=== PATIENT | male | born 1980 | race Caucasian/White ===

== ENCOUNTER 2017-06-24 09:15 | Emergency (ER) | payer OTHER, SELFPAY ==
[2017-06-24 09:16] VITALS: BP 156/96; PULSE 103; RESP 17; TEMP 36.5; O2SAT 99
--- NOTE | 2017-06-24 09:37 | NURSING ---
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
--- NOTE | 2017-06-24 09:48 | ED.VISSUMM ---
- ER Visit Summary Date of Service: 06/24/17 Chief Complaint: Thumb infection History of Present Illness: The patient is a 37 M presents with a left thumb infection. Patient is a diabetic with history of hypertension who states that on Saturday he had a superficial abrasion to the medial aspect of the left thumb. He then said about moving/cleaning a saltwater tank in which his hand was in the water. He contacted the telephonic nurse and they do not believe that there is anything poisonous in the tank. There was choral but he does not believe he cut himself on the coral. Today he notes some swelling of the thumb to the point where he has limited motion at the interphalangeal joint as well as erythema. No fevers. No streaks up the arm. The patient states that he just started his second 7 day course of Levaquin for a respiratory infection. Physical Examination: Afebrile vital signs are stable Gen: Well-nourished well-developed Head: Normocephalic atraumatic Eyes: Perrl EOMI ENT: TMs clear no rhinorrhea moist mucous membranes Neck: Supple no lymphadenopathy no JVD nontender CVS: Regular rate rhythm no murmurs normal S1-S2 Respiratory: No distress clear to auscultation bilaterally chest nontender Abdomen: Soft nontender nondistended normal bowel sounds no masses Back: Nontender Extremity: Left thumb states a superficial abrasion in the medial aspect of the interphalangeal joint. There is some mild erythema surrounding this to the MCP joint. There is mild swelling. There is no lymphangitic streaking. There is no expression of fluid to culture. Skin: Normal color no rash Neuro: alert orientated ?3 CN II-XII intact normal strength sensation reflexes gait cerebellar Psych: Normal affect normal mood Emergency Department Course and Treatment: With infectious disease. They recommended adding and Bactrim. Should the patient have worsening symptoms he will need to return for IV antibiotics. Will need to be updated Impression: 1. Left thumb cellulitis. 2. Tetanus update This note was generated with [employer] dictation software. It may contain incorrect words, spelling, and punctuation that were not noted in review of the chart prior to signing ED Disposition - Plan for ED Patient: Disposition: Home or Assisted Living Chief Complaint: Wound Instructions: ED Infec Skin Cellulitis Prescriptions: Smz/Tmp Ds [Bactrim Ds] 1 tab PO BID #20 tab Referrals: Edgar Mckeon MD [Primary Care Provider] - 2 Days for wound check
[2017-06-24] MEDS: Diphth,Pertuss(Acell),Tet Vac 0.5 ML Vial IM (09:59)
== END 2017-06-24 10:30 | disposition home or self-care (01) ==
PROVIDERS: Emergency Provider Emergency Medicine; Family Provider Family Medicine; PCP Family Medicine
DX: S60.312A Abrasion of left thumb, initial encounter (principal); L03.012 Cellulitis of left finger; Z23 Encounter for immunization; J98.8 Other specified respiratory disorders; E11.9 Type 2 diabetes mellitus without complications; I10 Essential (primary) hypertension; X58.XXXA Exposure to other specified factors, initial encounter; Y93.9 Activity, unspecified; Y92.9 Unspecified place or not applicable; Z79.84 Long term (current) use of oral hypoglycemic drugs; Z79.899 Other long term (current) drug therapy
CPT/HCPCS: 90715; 99282

== ENCOUNTER → 2017-11-19 11:22 | Outpatient (CLI) | payer OTHER, SELFPAY ==
[2017-11-19 15:50] LABS: Absolute Lymphocyte Count 1.43 X10^3/ul (0.83-4.51); Absolute Neutrophil Count 4.9 X10^3/uL (2.0-7.7); Basophil# 0.02 X10^3/uL; Basophil% 0.3 % (0-1); Eosinophil# 0.06 X10^3/uL; Eosinophils% 0.9 % (0-5); Hematocrit 43.2 % (40-54); Hemoglobin 15.2 g/dl (13.0-16.5); Lymphocyte # 1.43 X10^3/ul (4.0); Lymphocyte % 21.1 % (19-41); Mean Corp Hgb Conc 35.2 g/gl (32-36); Mean Corpuscular Hgb 30.9 pg (27.0-32.0); Mean Corpuscular Volume 87.8 fL (80-94); Mean Platelet Vol. 9.7 fl (6.2-12.0); Monocyte# 0.37 X10^3/uL; Monocyte% 5.5 % (0-10); Neutrophil # 4.88 X10^3/uL (2.7-7.7); Neutrophil % 72.1 % (47-70); Platelet Count 209 K/mm3 (150-450); RBC Distribution Width CV 12.9 % (11.6-14.6); RBC Distribution Width SD 41.3 fl (35.1-43.9); Red Blood Count 4.92 M/mm3 (4.6-6.2); White Blood Count 6.8 K/mm3 (4.4-11.0)
[2017-11-19 15:52] LABS: POSITIVE COUNT NO; POSITIVE DIFFERENTIAL NO; POSITIVE MORPHOLOGY NO
[2017-11-19 16:03] LABS: ALB/GLOB Ratio 1.2 RATIO (0.9-2.4); AST(SGOT) 13 U/L (15-37); Alanine Aminotransfer ALT/SGPT 28 U/L (16-61); Albumin, Serum 4.1 g/dL (3.2-5.0); Alkaline Phosphatase 81 U/L (45-117); Anion Gap 13 (5-15); BUN 10 mg/dL (7-18); BUN/Creat Ratio 12.6 RATIO (10-20); Chloride 100 mmol/L (98-107); Creatinine, Serum 0.79 mg/dL (0.70-1.30); EST Glomerular Filtration Rate 116 mL/min (>60); Est Glom Filt Rate - Afr Amer 140 mL/min (>60); Globulin 3.4 g/dL (2.2-4.2); Glucose 110 mg/dL (74-106); Potassium 3.6 mmol/L (3.5-5.1); Protein, Total 7.5 g/dL (6.4-8.2); Sodium Level 138 mmol/L (136-145)
[2017-11-19 16:14] LABS: Phenytoin (Dilantin) Level 9.4 mL (10.0-20.0)
== END ==
PROVIDERS: Family Provider Family Medicine; PCP Family Medicine; Visit Provider Family Medicine
DX: E11.9 Type 2 diabetes mellitus without complications (principal); I10 Essential (primary) hypertension; F63.81 Intermittent explosive disorder
CPT/HCPCS: 36415; 80053; 80185; 85025

== ENCOUNTER → 2017-12-04 13:13 | Outpatient (CLI) | payer OTHER, SELFPAY ==
[2017-12-04 16:18] LABS: T4 Free Direct 0.89 ng/dL (0.76-1.46); Thyroid Stim Hormone (TSH) 2.39 uIU/mL (0.358-3.74)
== END ==
PROVIDERS: Family Provider Family Medicine; PCP Family Medicine; Visit Provider Family Medicine
DX: F41.9 Anxiety disorder, unspecified (principal)
CPT/HCPCS: 36415; 84439; 84443

== ENCOUNTER → 2020-02-17 10:18 | Outpatient (CLI) | payer OTHER, SELFPAY ==
[2020-02-17 12:26] LABS: Absolute Neutrophil Count 4.6 X10^3/uL (2.0-7.7); Basophil# 0.03 X10^3/uL; Basophil% 0.4 % (0-1); Eosinophil# 0.06 X10^3/uL; Eosinophils% 0.9 % (0-5); Hematocrit 45.8 % (40-54); Hemoglobin 15.3 g/dL (13.0-16.5); Lymphocyte % 25.9 % (19-41); Mean Corp Hgb Conc 33.4 g/dL (32-36); Mean Corpuscular Hgb 30.2 pg (27.0-32.0); Mean Corpuscular Volume 90.3 fL (80-94); Mean Platelet Vol. 9.6 fl (6.2-12.0); Monocyte# 0.39 X10^3/uL; Monocyte% 5.6 % (0-10); NRBC Flagged by Analyzer 0 % (0-5); Neutrophil # 4.64 X10^3/uL (2.7-7.7); Neutrophil % 66.9 % (47-70); Platelet Count 221 K/mm3 (150-450); RBC Distribution Width CV 12.1 % (11.6-14.6); RBC Distribution Width SD 39.9 fl (35.1-43.9); Red Blood Count 5.07 M/mm3 (4.6-6.2); White Blood Count 6.9 K/mm3 (4.4-11.0)
[2020-02-17 12:58] LABS: Phenytoin (Dilantin) Level 9.7 mL (10.0-20.0)
[2020-02-17 13:07] LABS: ALB/GLOB Ratio 1.4 RATIO (0.9-2.4); AST(SGOT) 13 U/L (15-37); Alanine Aminotransfer ALT/SGPT 32 U/L (16-61); Albumin, Serum 4.2 g/dL (3.2-5.0); Alkaline Phosphatase 81 U/L (45-117); Anion Gap 5 (5-15); BUN 12 mg/dL (7-18); BUN/Creat Ratio 15.8 RATIO (10-20); Chloride 102 mmol/L (98-107); Cholesterol 262 mg/dL (200); Creatinine, Serum 0.76 mg/dL (0.70-1.30); EST Glomerular Filtration Rate 120 mL/min (>60); Est Glom Filt Rate - Afr Amer 145 mL/min (>60); Globulin 3.1 g/dL (2.2-4.2); Glucose 102 mg/dL (74-106); High Density Lipoprotein 35 mg/dL; Potassium 3.8 mmol/L (3.5-5.1); Protein, Total 7.3 g/dL (6.4-8.2); Sodium Level 138 mmol/L (136-145); Triglycerides 639 mg/dL
== END ==
PROVIDERS: PCP Family Medicine; Visit Provider Family Medicine
DX: E11.9 Type 2 diabetes mellitus without complications (principal); E78.5 Hyperlipidemia, unspecified; I10 Essential (primary) hypertension; Z51.81 Encounter for therapeutic drug level monitoring
CPT/HCPCS: 36415; 80053; 80061; 80185; 85025

== ENCOUNTER → 2020-05-31 09:09 | Outpatient (CLI) | payer OTHER, SELFPAY ==
[2020-05-31 12:25] LABS: Cholesterol 305 mg/dL (200); High Density Lipoprotein 35 mg/dL; Triglycerides 759 mg/dL
== END ==
PROVIDERS: PCP Family Medicine; Visit Provider Family Medicine
DX: E78.2 Mixed hyperlipidemia (principal); E11.9 Type 2 diabetes mellitus without complications
CPT/HCPCS: 36415; 80061

== ENCOUNTER → 2022-02-08 | Outpatient (CLI) | payer OTHER, SELFPAY ==
[2022-02-08 10:41] LABS: Bacteria 0 SEEN /hpf (None Seen); Mucous, Urine 0 SEEN /hpf (<or=2+); Red Blood Cells-Urine 0 SEEN /hpf (0-5); Squamous Epithelial Cells - UA 0 SEEN /hpf (0-5); White Blood Cells 0 SEEN /hpf (0-5)
[2022-02-08 12:50] LABS: Color, Urine Yellow (Yellow); Glucose, Dipstick Normal (Normal); Ketone-Dipstick 5 mg/dl (Negative); Leukocyte Esterase-Dipstick 25 /ul (Negative); Nitrite-Dipstick Negative (Negative); Occult Blood-Urine Negative /ul (Negative); Protein-Dipstick Negative (Negative); Urine Bilirubin Dipstick Negative (Negative); Urine Clarity Clear (Clear); Urine Urobilinogen Normal (Normal); Urine pH 6.5 (5.0 - 8.0)
[2022-02-08 13:02] LABS: Calcium Oxalate Crystals Ur 1+ /hpf (<or=2+)
== END | disposition home or self-care (01) ==
LOC: LABSPEC 10:40
PROVIDERS: PCP Internal Medicine; Referring Provider Nurse Practitioner Family; Visit Provider Nurse Practitioner Family
DX: I10 Essential (primary) hypertension (principal); E11.9 Type 2 diabetes mellitus without complications; E78.1 Pure hyperglyceridemia; R35.0 Frequency of micturition
CPT/HCPCS: 81001; 87086

== ENCOUNTER → 2022-02-27 | Outpatient (CLI) | payer OTHER, SELFPAY ==
[2022-02-27 12:38] LABS: Absolute Lymphocyte Count 1.95 X10^3/uL (0.83-4.51); Basophil# 0.05 X10^3/uL; Basophil% 0.6 % (0-1); Eosinophil# 0.09 X10^3/uL; Hematocrit 47.1 % (40-54); Hemoglobin 16.4 g/dL (13.0-16.5); Lymphocyte # 1.95 X10^3/ul (0.83-4.51); Lymphocyte % 22.7 % (19-41); Mean Corp Hgb Conc 34.8 g/dL (32-36); Mean Platelet Vol. 10.5 fl (6.2-12.0); Monocyte# 0.48 X10^3/uL; Monocyte% 5.6 % (0-10); NRBC Flagged by Analyzer 0 % (0-5); Neutrophil # 6.01 X10^3/uL (2.7-7.7); Platelet Count 235 K/mm3 (150-450); RBC Distribution Width CV 11.9 % (11.6-14.6); RBC Distribution Width SD 38.8 fl (35.1-43.9); Red Blood Count 5.29 M/mm3 (4.6-6.2); White Blood Count 8.6 K/mm3 (4.4-11.0)
[2022-02-27 13:21] LABS: ALB/GLOB Ratio 1.2 RATIO (0.9-2.4); AST(SGOT) 8 U/L (15-37); Alanine Aminotransfer ALT/SGPT 24 U/L (16-61); Albumin, Serum 4.1 g/dL (3.2-5.0); Alkaline Phosphatase 69 U/L (45-117); Anion Gap 9 (5-15); BUN 15 mg/dL (7-18); Chloride 102 mmol/L (98-107); Cholesterol 289 mg/dL (200); Creatinine, Serum 0.94 mg/dL (0.70-1.30); EST Glomerular Filtration Rate 93 mL/min (>60); Est Glom Filt Rate - Afr Amer 113 mL/min (>60); Globulin 3.3 g/dL (2.2-4.2); Glucose 138 mg/dL (74-106); High Density Lipoprotein 40 mg/dL; Potassium 3.9 mmol/L (3.5-5.1); Protein, Total 7.4 g/dL (6.4-8.2); Sodium Level 138 mmol/L (136-145); Triglycerides 184 mg/dL; Very Low Density Lipoprotein 37 mg/dL (5-40)
[2022-02-28 22:06] LABS: Chlamydia By Nucleic Acid AMP Negative (Negative)
[2022-02-28 22:52] LABS: Gonococcus By Nucleic Acid AMP Negative (Negative)
== END | disposition home or self-care (01) ==
LOC: BIMLAB 09:26
PROVIDERS: PCP Internal Medicine; Referring Provider Nurse Practitioner Family; Visit Provider Nurse Practitioner Family
DX: I10 Essential (primary) hypertension (principal); E11.9 Type 2 diabetes mellitus without complications; E78.1 Pure hyperglyceridemia; R35.0 Frequency of micturition
CPT/HCPCS: 36415; 80053; 80061; 84443; 85025; 87491; 87591

== ENCOUNTER → 2023-05-02 | Outpatient (CLI) | payer OTHER, SELFPAY ==
--- OUTSIDE RECORDS SUMMARY | 2023-05-02 09:36 | XMS RPT_ITS | CCD ---
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 Name Role Phone NON STAFF Primary Care Provider MD Juan Alberto Coker Emergency Provider MD Loi Quiñones Admit Provider MD Loi Quiñones Attending Provider [phone] Unavailable Primary Care Provider Loi Lombardo Attending Loi Lombardo Admitting Caren e NON STAFF Primary Care Unavailable Medications Current Medications Medication Drug Class(es) Dates Sig (Normalized) Sig (Original) atorvastatin 20 mg oral tablet (1 source) HMG-CoA Reductase Inhibitor Start: 12-27-2021 take 20 mg by mouth once daily Atorvastatin Active 20 MG PO Daily December 27, 2021 12:00am hydroCHLOROthiazide 25 mg / lisinopril 20 mg oral tablet (1 source) Thiazide Diuretic, Angiotensin Converting Enzyme Inhibitor Start: 12-27-2021 take 1 tablet by mouth once daily Lisinopril-Hood chlorothiazide Active 1 TAB PO Daily December 27, 2021 12:00am phenytoin sodium 100 mg extended release oral capsule (1 source) Anti-epileptic Agent Start: 12-27-2021 take 2 capsules by mouth twice daily Phenytoin Sodium Extended (Dilantin Extended) 100 mg Capsule Active 200 MG PO Twice daily December 27, 2021 12:00am venlafaxine 75 mg oral tablet (1 source) Serotonin and Norepinephrine Reuptake Inhibitor Start: 12-27-2021 take 75 mg by mouth once daily Venlafaxine Active 75 MG PO Daily December 27, 2021 12:00am Completed/Discontinued Medications Medication Drug Class(es) Dates Sig (Normalized) Sig (Original) acetaminophen 500 mg / HYDROcodone bitartrate 5 mg oral tablet (1 source) Opioid Agonist Start: 12-09-2009 hydrocodone bit/acetaminophen(V ICODIN 5 MG-500 MG TAB) takes as directed. 0 0 12/09/2009 Active Problems Active Problems Problem Classification Problem Date Documented Da te Episodic/Chronic Anxiety disorders (1 source) Anxiety disorder, unspecified; Translations: [Anxiety disorder, unspecified] Onset: 12-27-2021 Chronic Mood disorders (1 source) Mood disorders; Translations: [Depression, unspecified] Onset: 12-27-2021 Past or Other Problems Problem Classification Problem Date Documented Da te Episodic/Chronic Suicide and intentional self-inflicted injury (3 sources) Suicidal thoughts; Translations: [Suicidal ideations] Onset: 12-27-2021 12-27-2021 Episodic Results Test Name Value Interpretation Reference Range Facil ity Vital Signs Date Time Vital Sign Value Performing Clinician Faci lity 12-27-2021 19:19-0400 Body temperature 98.3 [degF] [facility] 12-27-2021 19:19-0400 Diastolic blood pressure 90 mm[Hg] [facility] 12-27-2021 19:19-0400 Heart rate 76 /min [facility] 12-27-2021 19:19-0400 Respiratory rate 18 /min [facility] 12-27-2021 19:19-0400 SaO2% (BldA) [Mass fraction] 98 % [facility] 12-27-2021 19:19-0400 Systolic blood pressure 146 mm[Hg] [facility] 12-27-2021 17:21-0400 Body height 180.34 cm [facility] 12-27-2021 17:21-0400 Body weight 95.25 kg [facility] Encounters Encounter Date Encounter Type Care Provider Facility Start: 01-02-2022 End: 01-30-2022 ambulatory Facility:[id number] Start: 01-02-2022 End: 01-29-2022 Subsequent hospital visit by physician Lab Referred Work Phone: [facility] Procedures Date Procedure Procedure Detail Performing Clinician SARS Antigen (LFIA) Plan of Treatment Date Care Activity Detail Author Start: 11-30-2021 Influenza vaccination INFLUENZA (#1) [facility] Start: 04-01-2021 DEPRESSION ASSESSMENT DEPRESSION ASS ESSMENT [facility] Start: 2014 LIPID SCREEN LIPID SCREEN [facility] Start: 1998 Urine microalbumin profile DTAP,TDAP,TD (1 - Tdap) [facility] Start: 1997 HEPATITIS C SCREENING HEPATITIS C SC REENING [facility] Start: 1997 HIV SCREENING HIV SCREENING [facility] Start: 1985 PNEUMOCOCCAL (1 - PCV) PNEUMOCOCCAL (1 - PCV) [facility] Start: 1979 COVID-19 VACCINE (#1) COVID-19 VACCI NE (#1) [facility] Start: 1979 HEPATITIS B (1 of 3 - 3-dose series) HEPATITIS B (1 of 3 - 3-dose series) [facility] Payers Date Payer Category Payer Self-pay 2021 Unknown [id number] Unknown Other1 (STD) [id number] Unknown [facility] [employer] PA YOR [facility] [employer] PAYOR [id number] Effective for all dates [address] [place] [address] Other [id number] Unknown [id number] Social History Date Type Detail Facility Start: 12-27-2021 [facility] Start: 1980 Sex Assigned At Male F [facility] Start: 12-09-2009 Tobacco smoking stat [facility] Smokes tobacco daily [facility] History of tobacco use Cigarette Smoker [facility] Start: 12-09-2009 Tobacco use and exposure User of smokeless tobacco [facility] History of tobacco use Chews Tobacco [facility] Start: 12-09-2009 Alcohol intake Current drinke r of alcohol (finding) [facility] Start: 1979 Sex Assigned At Not on file [facility] Evaluation note Note Date & Type Note Facility [facility] Work Phone: Chief Complaint and Reason for Visit Chief Complaint SI Reason for Visit Suicidal ideation Advance Directives No Advanced Directives Records Found Advance Directive Response Recorded Date/ Time Advance Directives No November 5:50pm Summary Purpose Family History No Family History Records FoundNo Family History Records Found Additional Source Comments Care Teams (unrecognized sec tion and content) Team Status: Active Member Role Status Dates NON STAFF Primary Care Provider Active Goals (unrecognized section and content) Goals may be documented in a n alternate section Source Comments (unrecognize d section and content) In the event this informatio n is protected by the Federal Confidentiality of Alcohol and Drug Abuse Patient Records regulations: The Federal rules restrict any use of the information to criminally investigate or prosecute any alcohol or drug abuse patient.[facility] (unrecognized sect ion and content) No Status Records FoundNo Status Records Found INFORMATION SOURCE (unrecogn ized section and content) DATE CREATED AUTHOR AUTHOR'S ORGANIZ ATION 05/05/2022 [facility] FOR RECORDS PERTAINING TO PATIENTS WHO ARE OR HAVE BEEN ENROLLED IN A CHEMICAL DEPENDENCY/SUBSTANCEABUSE PROGRAM, SOME INFORMATION MAY BE OMITTED. This clinical summary was aggregated from multiple sources. Caution should be exercised in using it in the provision of clinical care. This summary normalizes information from multiple sources, and as a consequence, information in this document may materially change the coding, format and clinical context of patient data. In addition, data may be omitted in some cases. CLINICAL DECISIONS SHOULD BE BASED ON THE PRIMARY CLINICAL RECORDS. [email or web address] [facility]. provides no warranty or guarantee of the accuracy or completeness of information in this document.
[2023-05-02 12:11] LABS: Absolute Lymphocyte Count 1.72 X10^3/uL (0.83-4.51); Absolute Neutrophil Count 4.8 X10^3/uL (2.0-7.7); Basophil# 0.03 X10^3/uL; Basophil% 0.4 % (0-1); Eosinophil# 0.09 X10^3/uL; Eosinophils% 1.3 % (0-5); Hematocrit 45.5 % (40-54); Hemoglobin 15.5 g/dL (13.0-16.5); Lymphocyte # 1.72 X10^3/ul (0.83-4.51); Lymphocyte % 24.3 % (19-41); Mean Corp Hgb Conc 34.1 g/dL (32-36); Mean Corpuscular Hgb 29.6 pg (27.0-32.0); Mean Corpuscular Volume 86.8 fL (80-94); Mean Platelet Vol. 10.1 fl (6.2-12.0); Monocyte# 0.46 X10^3/uL; Monocyte% 6.5 % (0-10); NRBC Flagged by Analyzer 0 % (0-5); Neutrophil # 4.75 X10^3/uL (2.7-7.7); Neutrophil % 67.2 % (47-70); Platelet Count 229 K/mm3 (150-450); RBC Distribution Width CV 11.9 % (11.6-14.6); RBC Distribution Width SD 37.9 fl (35.1-43.9); Red Blood Count 5.24 M/mm3 (4.6-6.2); White Blood Count 7.1 K/mm3 (4.4-11.0)
[2023-05-02 12:43] LABS: ALB/GLOB Ratio 1.4 RATIO (0.9-2.4); AST(SGOT) 16 U/L (15-37); Alanine Aminotransfer ALT/SGPT 36 U/L (16-61); Albumin, Serum 4.5 g/dL (3.2-5.0); Alkaline Phosphatase 63 U/L (45-117); Anion Gap 5 (5-15); BUN 18 mg/dL (7-18); BUN/Creat Ratio 19.4 RATIO (10-20); Calcium,Total 9.2 mg/dL (8.5-10.1); Chloride 99 mmol/L (98-107); Cholesterol 226 mg/dL (200); Creatinine, Serum 0.93 mg/dL (0.70-1.30); EST Glomerular Filtration Rate 94 mL/min (>60); Est Glom Filt Rate - Afr Amer 114 mL/min (>60); Globulin 3.2 g/dL (2.2-4.2); Glucose 234 mg/dL (74-106); High Density Lipoprotein 43 mg/dL; Potassium 3.7 mmol/L (3.5-5.1); Protein, Total 7.7 g/dL (6.4-8.2); Sodium Level 132 mmol/L (136-145); Triglycerides 375 mg/dL; Very Low Density Lipoprotein 75 mg/dL (5-40)
[2023-05-02 12:54] LABS: Microalbumin,Random Urine 12.6 mg/L (NO RANGE EST.); Microalbumin:Creatinine Ratio 10.9 mg/g CRE (<30 mg/g CRE)
== END | disposition home or self-care (01) ==
LOC: BIMLAB 08:43
PROVIDERS: PCP Internal Medicine; Referring Provider Internal Medicine; Visit Provider Internal Medicine
DX: E11.9 Type 2 diabetes mellitus without complications (principal); I10 Essential (primary) hypertension
CPT/HCPCS: 36415; 80053; 80061; 82043; 82570; 85025

== ENCOUNTER → 2023-10-29 | Outpatient (CLI) | payer OTHER, SELFPAY ==
[2023-10-29 13:12] LABS: ALB/GLOB Ratio 1.3 RATIO (0.9-2.4); AST(SGOT) 17 U/L (15-37); Alanine Aminotransfer ALT/SGPT 25 U/L (16-61); Albumin, Serum 4.1 g/dL (3.2-5.0); Alkaline Phosphatase 56 U/L (45-117); Anion Gap 8 (5-15); BUN 13 mg/dL (7-18); BUN/Creat Ratio 13.5 RATIO (10-20); Calcium,Total 9.3 mg/dL (8.5-10.1); Chloride 102 mmol/L (98-107); Cholesterol 190 mg/dL (200); Creatinine, Serum 0.96 mg/dL (0.70-1.30); EST Glomerular Filtration Rate 90 mL/min (>60); Est Glom Filt Rate - Afr Amer 109 mL/min (>60); Globulin 3.1 g/dL (2.2-4.2); Glucose 149 mg/dL (74-106); High Density Lipoprotein 44 mg/dL; Protein, Total 7.2 g/dL (6.4-8.2); Sodium Level 135 mmol/L (136-145); Triglycerides 296 mg/dL; Very Low Density Lipoprotein 59 mg/dL (5-40)
[2023-10-29 13:51] LABS: Hemoglobin A1c 6.2 % (3.8-5.6)
== END | disposition home or self-care (01) ==
LOC: BIMLAB 08:22
PROVIDERS: PCP Internal Medicine; Visit Provider Internal Medicine
DX: I10 Essential (primary) hypertension (principal); E11.9 Type 2 diabetes mellitus without complications; E78.5 Hyperlipidemia, unspecified
CPT/HCPCS: 36415; 80053; 80061; 83036

== ENCOUNTER → 2024-09-11 | Outpatient (CLI) | payer OTHER, SELFPAY ==
[2024-09-11 15:22] LABS: Absolute Lymphocyte Count 1.54 X10^3/uL (0.83-4.51); Absolute Neutrophil Count 4.1 X10^3/uL (2.0-7.7); Basophil# 0.04 X10^3/uL; Basophil% 0.6 % (0-1); Eosinophils% 3.1 % (0-5); Hematocrit 39.9 % (40-54); Hemoglobin 13.5 g/dL (13.0-16.5); Lymphocyte # 1.54 X10^3/ul (0.83-4.51); Mean Corp Hgb Conc 33.8 g/dL (32-36); Mean Corpuscular Hgb 29.5 pg (27.0-32.0); Mean Corpuscular Volume 87.1 fL (80-94); Monocyte# 0.52 X10^3/uL; Monocyte% 8.1 % (0-10); NRBC Flagged by Analyzer 0 % (0-5); Neutrophil # 4.11 X10^3/uL (2.7-7.7); Platelet Count 204 K/mm3 (150-450); RBC Distribution Width CV 12.7 % (11.6-14.6); RBC Distribution Width SD 40.4 fl (35.1-43.9); Red Blood Count 4.58 M/mm3 (4.6-6.2); White Blood Count 6.4 K/mm3 (4.4-11.0)
[2024-09-11 17:16] LABS: ALB/GLOB Ratio 1.9 RATIO (0.9-2.4); AST(SGOT) 33 U/L (<=37); Alanine Aminotransfer ALT/SGPT 72 U/L (<=46); Albumin, Serum 4.5 g/dL (3.5-5.0); Alkaline Phosphatase 68 U/L (40-129); Anion Gap 12 (5-15); BUN 15 mg/dL (4-19); Carbon Dioxide 25.8 mmol/L (21.0-32.0); Chloride 103 mmol/L (98-108); Cholesterol 195 mg/dL (<=200); Creatinine, Serum 0.87 mg/dL (0.70-1.20); EST Glomerular Filtration Rate 108 (>60); Globulin 2.4 g/dL (2.2-4.2); Glucose 120 mg/dL (70-99); High Density Lipoprotein 48 mg/dL; Low Density Lipoprotein Calc. 108 mg/dL; PSA,Total - Annual Screen 0.43 ng/mL (0.02-4.00); Potassium 3.7 mmol/L (3.3-5.1); Protein, Total 6.9 g/dL (5.9-8.4); Sodium Level 141 mmol/L (133-145); Triglycerides 196 mg/dL; Very Low Density Lipoprotein 39 mg/dL (5-40); cholesterol:hdl ratio screen 4.07
== END | disposition home or self-care (01) ==
LOC: BIMLAB 14:15
PROVIDERS: PCP Internal Medicine; Referring Provider Internal Medicine; Visit Provider Internal Medicine
DX: Z12.5 Encounter for screening for malignant neoplasm of prostate (principal); N39.43 Post-void dribbling; I10 Essential (primary) hypertension
CPT/HCPCS: 36415; 80053; 80061; 84153; 85025; G0103

== ENCOUNTER → 2025-03-31 | Outpatient (CLI) | payer OTHER, SELFPAY ==
--- OUTSIDE RECORDS SUMMARY | 2025-03-31 08:32 | XMS RPT_ITS | CCD ---
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 [facility] Care Team Providers Care Php Mysql Web Developer Name Role Phone NON STAFF Primary Care Provider MD Juan Alberto Coker Emergency Provider MD Loi Quiñones Admit Provider [phone] MD Loi Quiñones Attending Provider Unavailable Primary Care Provider UnavailLoi [place] Attending UnavailLoi [place] Admitting Unavailkiersten e NON STAFF Primary Care Unavailable Oleghe, Efewongbe Referring Unavailable Oleghe, Efewongbe Primary Care Unavailable Oleghe, Efewongbe Attending Unavailable Oleghe, Efewongbe Referring Unavailable Oleghe, Efewongbe Primary Care Unavailable Oleghe, Efewongbe Attending Unavailable Jong Nava Attending Unavailable Oleghe, Efewongbe Primary Care Unavailable Mk Cooper Attending Unavailable Oleghe, Efewongbe Primary Care Unavailable Oleghe, Efewongbe Referring Unavailable Jong Nava Attending Unavailable Oleghe, Efewongbe Primary Care Unavailable Oleghe, Efewongbe Referring Unavailable Oleghe, Efewongbe Primary Care Unavailable Oleghe, Efewongbe Attending Unavailable Jong Nava Attending Unavailable Oleghe, Efewongbe Primary Care Unavailable Mk Cooper Attending Unavailable Oleghe, Efewongbe Referring Unavailable Oleghe, Efewongbe Primary Care Unavailable Oleghe, Efewongbe Referring Unavailable Oleghe, Efewongbe Primary Care Unavailable Abdi De Guzman Attending Unavailable Medications Current Medications Medication Drug Class(es) [...] take 1 tablet by mouth once daily Lisinopril-[place] chlorothiazide Active 1 TAB PO Daily December [...] (1 source) Opioid Agonist Start: 12-09-2009 hydrocodone bit/acetaminophen( VICODIN 5 MG-500 MG TAB) takes as directed. 0 0 12/09/2009 Active Comment on above: takes as directed. COMPOUNDED PRESCRIPTION (1 source) Start: 12-09-2009 COMPOUNDED PRESCRIPTION naprosyn as needed and directed. 0 12/09/2009 Active Comment on above: naprosyn as needed a nd directed. lisinopril 20 mg oral tablet (1 source) Angiotensin Converting Enzyme Inhibitor Start: 12-09-2009 LISINOPRIL 20 MG TAB Take one(1) tablet daily. 0 0 12/09/2009 Active Comment on above: Take one(1) tablet d aily. Problems Active Problems Problem Classification Problem Date Documented Da te Episodic/Chronic Anxiety disorders (1 source) Anxiety disorder, unspecified; Translations: [Anxiety disorder, unspecified] Onset: 12-27-2021 Chronic Diabetes mellitus with complications (1 source) Type 2 diabetes mellitus with other specified complication; Translations: [Type 2 diabetes mellitus with other specified complication] Onset: 01-06-2025 Chronic Mood disorders (1 source) Major depressive disorder, single episode, unspecified; Translations: [Major depressive disorder, single episode, unspecified] Onset: 04-28-2024 Chronic Mood disorders (1 source) Mood disorders; Translations: [Depression, unspecified] Onset: 12-27-2021 Substance-related disorders (1 source) Opioid dependence, in remission; Translations: [Opioid dependence, in remission] Onset: 04-28-2024 Chronic Unclassified (1 source) Alcohol use, unspecified, in remission; Translations: [Alcohol use, unspecified, in remission] Onset: 04-28-2024 Past or Other Problems Problem Classification Problem Date Documented Da te Episodic/Chronic Allergic reactions (1 source) Dermatitis, unspecified; Translations: [Dermatitis, unspecified] Onset: 07-10-2024 Episodic Other screening for suspected conditions (not mental disorders or infectious disease) (1 source) Encounter for screening for malignant neoplasm of prostate; Translations: [Encounter for screening for malignant neoplasm of prostate] Onset: 09-17-2024 Episodic Suicide and intentional self-inflicted injury (3 sources) Suicidal thoughts; Translations: [Suicidal ideations] Onset: 12-27-2021 12-27-2021 Episodic Results Test Name Value Interpretation Reference Range Facility MR/BMS.BPon 01-18-2025 MR/BMS.BP [facility] Psychiatry [address] [place] [address], [address] [place] [address] OFFICE VISIT Date of Service: 01/18/25 MR#: [id number] Acct: [id number] Name: CHRISTA LOPEZ Rep #: [id number] : 1980 Provider: Dr. Jong Shah se, DO Age/Sex: 44/M Location: [facility].BP Status: Signed Intake Vital Signs 12/17/24 07:31 01/06/25 16:07 01/18/25 14:28 Height 5 ft 10 in 5 ft 10 in 5 ft 10 in Weight: 216 lb 222 lb BMI 30.9 31.8 BP 129/85 H 132/83 H Blood Pressure Location Lt brachial Lt brachial Position Sitting Sitting Respiration 16 16 Pulse 91 89 Pulse Source Monitor Monitor BP Intake Visit Reasons: 1 M FU Accompanied by: Self Allergies No Known Allergies Allergy (Verified 01/18/25 14:32) Medications ???Medication ???Instructions ???Recorded ???Confirmed ???Type clonidine HCl 0.1 mg tablet 0.1 mg PO QHS #90 tabs 04/28/24 Rx hydroxyzine HCl 10 mg tablet 10 mg PO TID PRN anxiety #90 tabs 04/28/24 01/18/25 Rx venlafaxine 75 mg capsule,extended 75 mg PO DAILY #90 caps 04/28/24 01/18/25 Rx release 24 hr glimepiride 4 mg tablet 6 mg (1.5 x 4 mg) PO QAM 3 months 09/11/24 01/18/25 Rx #135 tabs cariprazine 1.5 mg capsule 1.5 mg PO DAILY #90 caps 10/26/24 01/18/25 Rx (Vraylar) hydrochlorothiazide 25 mg tablet See Rx Instructions .Route 5 01/18/25 Rx .COMPLEX #90 tabs rosuvastatin 10 mg tablet 10 mg PO QHS #90 tabs 10/26/24 Rx metformin 500 mg tablet,extended 1,000 mg (2 x 500 mg) PO DAILY 07/2401/18/25 Rx release 24 hr #180 tabs lisinopril 40 mg tablet 40 mg PO DAILY #90 tabs 11/16/24 1 Rx 7-hydroxymitragynine 200 mg PO 12/17/24 01/18/25 Histor y [facility] Medical History Screening for prostate cancer Dribbling following urination Low back pain Chronic low back pain with bilateral sciatica Urinary frequency Alcohol use disorder in remission Major depressive disorder Opioid use disorder, severe, in early remission Hyperlipidemia Tobacco abuse counseling Hypertension Anxiety History of drug abuse Type 2 diabetes mellitus History of alcohol abuse Surgical History No significant past surgical history Family History Father Alcoholism Anxiety Depression High cholesterol Mother Anemia Autoimmune disease High cholesterol Grandfather Cancer Diabetes Heart disease Grandmother Cancer Skin cancer CVA (cerebral vascular accident) Brother Respiratory disease Social History Smoking Status: Current some day smoker alcohol intake: never substance use type: does not use what type of physical activity do you participate in: none HPI History of Present Illness History provided by: patient HPI: Christa Lopez is a 44 year old male who presents today for follow up evaluation. Has been weaning off of 7 hydroxymitragynine and is down to about 2.5 tablets per day. Has been following with someone weekly at [facility]. Also doing 2 NA classes per week. Is set to follow with Dr. Trevizo on Saturday. Has never done suboxone previously. Did try some clonidine and effects were very minimal. Is apprehensive about sleep tonight because he is reducing his dose of 7 hydroxymitragynine. Reports to still being motivated to quit. Mood has been very up and down. Plans to do 180 IOP as soon as there is a spot available. Review of Systems Constitutional Reports: chills; Denies: fever(s), change in weight or fatigue Eyes Denies: change in vision or blurry vision Ears, Nose, Mouth, Throat Denies: throat pain, neck pain or change in hearing Cardiovascular Denies: chest pain, palpitations or dyspnea Respiratory Denies: dyspnea, cough or wheezing Gastrointestinal Denies: abdominal pain, nausea, vomiting, diarrhea or constipation Genitourinary Denies: dysuria or urinary frequency Musculoskeletal Denies: back pain, neck pain, joint pain or muscle weakness Integumentary/Breast Denies: rash or new lesions Neurological Denies: headache(s), dizziness or confusion Endocrine Reports: excessive sweating; Denies: fatigue Hematologic/Lymphatic Denies: easy bruising or easy bleeding Allergic/Immunologic Denies: wheezing Exam Mental Status Exam - Psych Appearance casually dressed and no apparent distress Attitude cooperative Activity/Motor Behavior MSE activity/motor behavior finding no adventitious movements Speech regular rate, regular volume and regular prosody Mood other (up and down) Affect anxious Thought Process linear, logical and coherent Thought Content no delusions a (more content not included)... [facility] Internal Medicine Office Vis justin 01-06-2025 Internal Medicine Office Visit [facility] Internal Medicine [facility] [place] [address] [place] [address] OFFICE VISIT Date of Service: 01/06/25 MR#: [id number] Acct: [id number] Name: CHRISTA LOPEZ Rep #: [id number] : 1980 Provider: FIOR Patel Age/Sex: 44/M Location: [facility] Status: Signed Intake Vital Signs 12/17/24 07:31 01/06/25 16:07 Height 5 ft 10 in 5 ft 10 in Weight: 216 lb 224 lb 6 oz BMI 30.9 32.1 BP 129/85 H 122/78 H Blood Pressure Location Lt brachial Lt brachial Position Sitting Sitting Respiration 16 16 Pulse 91 105 H Pulse Source Monitor Monitor Temp 96.7 F L Temp Source Temporal Pulse Oximetry (%) 97 Oxygen Delivery Method room air Intake Visit Reasons: 3 month follow up 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 Accompanied by: Self Is patient in pain?: No Allergies No Known Allergies Allergy (Verified 01/06/25 15:56) Medications ???Medication ???Instructions ???Recorded ???Confirmed ???Type clonidine HCl 0.1 mg tablet 0.1 mg PO QHS #90 tabs 04/28/24 Rx hydroxyzine HCl 10 mg tablet 10 mg PO TID PRN anxiety #90 tabs 04/28/24 01/06/25 Rx venlafaxine 75 mg capsule,extended 75 mg PO DAILY #90 caps 04/28/24 01/06/25 Rx release 24 hr glimepiride 4 mg tablet 6 mg (1.5 x 4 mg) PO QAM 3 months 09/11/24 01/06/25 Rx #135 tabs cariprazine 1.5 mg capsule 1.5 mg PO DAILY #90 caps 10/26/24 01/06/25 Rx (Vraylar) hydrochlorothiazide 25 mg tablet See Rx Instructions .Route 5 01/06/25 Rx .COMPLEX #90 tabs rosuvastatin 10 mg tablet 10 mg PO QHS #90 tabs 10/26/2411/23 Rx metformin 500 mg tablet,extended 1,000 mg (2 x 500 mg) PO DAILY 07/2401/06/25 Rx release 24 hr #180 tabs lisinopril 40 mg tablet 40 mg PO DAILY #90 tabs 11/16/24 1 0/08/25 Rx 7-hydroxymitragynine 200 mg PO 12/17/24 01/06/25 Histor y [facility] Medical History Screening for prostate cancer Dribbling following urination Low back pain Chronic low back pain with bilateral sciatica Urinary frequency Alcohol use disorder in remission Major depressive disorder Opioid use disorder, severe, in early remission Hyperlipidemia Tobacco abuse counseling Hypertension Anxiety History of drug abuse Type 2 diabetes mellitus History of alcohol abuse Surgical History No significant past surgical history Family History Father Alcoholism Anxiety Depression High cholesterol Mother Anemia Autoimmune disease High cholesterol Grandfather Cancer Diabetes Heart disease Grandmother Cancer Skin cancer CVA (cerebral vascular accident) Brother Respiratory disease Social History Smoking Status: Current some day smoker alcohol intake: never substance use type: does not use what type of physical activity do you participate in: none HPI HPI Chief Complaint: 3 M FU Details: CHRISTA LOPEZ, is a 44 M who presents to the office today for f/u on his diabetes He was diagnosed about 10 year ago His grandmother was diabetic He states that he doesn't check his sugars regularly. He states that he goes through spurts Patient does use tobacco both chewing tobacco (mainly) and cigarettes Patient does drink coffee (3 cups per day) No ETOH use No regular exercise Sees eye doctor (no recent vision changes) and dentist annually No recent medication changes. No tolerance issues with current regimen. He is currently dealing with some addiction / withdrawal issues from OTC pain (7-OH). Patient has had issues with addiction before (Kratom) and spent some time inpatient rehab. 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 He is slowly weening off of the medication. ROS Const Constitutional: No body ache, excessive sweating, fatigue, fever(s), frequent falls, headache(s), snoring, weakness, weight change, sleep problems or change in appetite Eyes Eyes: No blurry vision, change in vision, eye pain or Light sensitivity ENT ENT: No abnormal hearing, ear or mastoid pain, tinnitus, nasal congestion, headache(s), neck pain or sore throat Resp Respiratory: No cough, shortness of breath, snoring or wheezing Cardio Cardiology: No chest pain at rest, chest pain with exertion, excessive sweating, shortness of breath, dyspnea on exertion, lightheadedness, orthopnea or palpitations Gastro GI: No abdominal pain, change in bowel habits, constipation, cramping, diarrhea, nausea/dyspepsia or vomiting Genitourinary Male: No burning urination, painful urination, urinary incontinence, urinary frequency (more content not included)... [facility] MR/BMS.BPon 12-17-2024 MR/BMS.BP [facility] [address] [facility], [address] [place] [address] OFFICE VISIT Date of Service: 12/17/24 MR#: [id number] Acct: [id number] Name: CHRISTA LOPEZ Rep #: [id number] : 1980 Provider: Dr. Jong Shah se, Age/Sex: 44/M Location: [facility].BP Status: Signed Intake Vital Signs 09/11/24 13:52 12/17/24 07:31 Height 5 ft 10 in 5 ft 10 in Weight: 227 lb 216 lb BMI 32.5 30.9 BP 130/98 H 129/85 H Blood Pressure Location Lt brachial Lt brachial Position Sitting Sitting Respiration 16 16 Pulse 88 91 Pulse Source Monitor Monitor Temp 96.7 F L Pulse Oximetry (%) 97 Oxygen Delivery Method room air BP Intake Visit Reasons: follow up Accompanied by: Self Allergies No Known Allergies Allergy (Verified 12/17/24 07:33) Medications ???Medication ???Instructions ???Recorded ???Confirmed ???Type clonidine HCl 0.1 mg tablet 0.1 mg PO QHS #90 tabs 04/28/24 Rx hydroxyzine HCl 10 mg tablet 10 mg PO TID PRN anxiety #90 tabs 04/28/24 12/17/24 Rx venlafaxine 75 mg capsule,extended 75 mg PO DAILY #90 caps 04/28/24 12/17/24 Rx release 24 hr glimepiride 4 mg tablet 6 mg (1.5 x 4 mg) PO QAM 3 months 09/11/24 12/17/24 Rx #135 tabs cariprazine 1.5 mg capsule 1.5 mg PO DAILY #90 caps 10/26/24 12/17/24 Rx (Vraylar) hydrochlorothiazide 25 mg tablet See Rx Instructions .Route 5 12/17/24 Rx .COMPLEX #90 tabs rosuvastatin 10 mg tablet 10 mg PO QHS #90 tabs 10/26/24 Rx metformin 500 mg tablet,extended 1,000 mg (2 x 500 mg) PO DAILY 07/2412/17/24 Rx release 24 hr #180 tabs lisinopril 40 mg tablet 40 mg PO DAILY #90 tabs 11/16/24 0 12/17/24 Rx 7-hydroxymitragynine 200 mg PO 12/17/24 History [facility] Medical History Screening for prostate cancer Dribbling following urination Low back pain Chronic low back pain with bilateral sciatica Urinary frequency Alcohol use disorder in remission Major depressive disorder Opioid use disorder, severe, in early remission Hyperlipidemia Tobacco abuse counseling Hypertension Anxiety History of drug abuse Type 2 diabetes mellitus History of alcohol abuse Surgical History No significant past surgical history Family History Father Alcoholism Anxiety Depression High cholesterol Mother Anemia Autoimmune disease High cholesterol Grandfather Cancer Diabetes Heart disease Grandmother Cancer Skin cancer CVA (cerebral vascular accident) Brother Respiratory disease Social History Smoking Status: Current some day smoker alcohol intake: never substance use type: does not use what type of physical activity do you participate in: none HPI History of Present Illness History provided by: patient HPI: Christa Lopez is a 44 year old male who presents today for follow up evaluation. Patient reports that he stopped taking naltrexone about 6 months ago, then started taking kratom again. This led him to start taking 7 hydroxymitragynine. Essentially feels like a more potent form of kratom. Has already scheduled with [facility] for Saturday. Was taking 6 tablets per day and now is down to 4 tablet. Has been having insomnia, restlessness, night sweats with reducing use. Doesn't notice any significant difference after taking clonidie. Mood beltran has been ok. Before use had overall been doing well. Has been able to continue all his other medications as prescribed. Took yesterday off of work and plans to also take off today. Denies SI/HI or AVH. Review of Systems Constitutional Reports: chills; Denies: fever(s), change in weight or fatigue Eyes Denies: change in vision or blurry vision Ears, Nose, Mouth, Throat Denies: throat pain, neck pain or change in hearing Cardiovascular Denies: chest pain, palpitations or dyspnea Respiratory Denies: dyspnea, cough or wheezing Gastrointestinal Denies: abdominal pain, nausea, vomiting, diarrhea or constipation Genitourinary Denies: dysuria or urinary frequency Musculoskeletal Denies: back pain, neck pain, joint pain or muscle weakness Integumentary/Breast Denies: rash or new lesions Neurological Denies: headache(s), dizziness or confusion Endocrine Reports: excessive sweating; Denies: fatigue Hematologic/Lymphatic Denies: easy bruising or easy bleeding Allergic/Immunologic Denies: wheezing Exam Mental Status Exam - Psych Appearance casually dressed and no apparent distress Attitude cooperative Activity/Motor Behavior MSE activity/motor behavior finding no adventitious movements Speech regular rate, r (more content not included)... [facility] CBC W/Diff, Automatedon 08-30-2024 Absolute Lymph 1.54 X10 3/uL Normal 0.83-4.51 [facility] Comment on above: Performed By: #### L 501.9910, L500.4100, L500.4050, L100.0100 #### [facility] [address] [place], [address] Absolute Neut 4.1 X10 3/uL Normal 2.0-7.7 [facility] Comment on above: Performed By: #### L 501.9910, L500.4100, L500.4050, L100.0100 #### [facility] [address] [place], [address] Basophils/100 WBC (Bld) 0.6 % Normal 0-1 [facility] Comment on above: Performed By: #### L 501.9910, L500.4100, L500.4050, L100.0100 #### [facility] [address] [place], [address] Eosinophils/100 WBC (Bld) 3.1 % Normal 0-5 [facility] Comment on above: Performed By: #### L 501.9910, L500.4100, L500.4050, L100.0100 #### [facility] [address] [place], [address] Erythrocyte distribution width (RBC) [Ratio] 12.7 % Normal 11.6-14.6 [facility] Comment on above: Performed By: #### L 501.9910, L500.4100, L500.4050, L100.0100 #### [facility] [address] [place], [address] Hematocrit (Bld) [Volume fraction] 39.9 % Low 40-54 [facility] Comment on above: Performed By: #### L 501.9910, L500.4100, L500.4050, L100.0100 #### [facility] [address] [place], [address] Hemoglobin (Bld) [Mass/Vol] 13.5 g/dL Normal 13.0-16.5 [facility] Comment on above: Performed By: #### L 501.9910, L500.4100, L500.4050, L100.0100 #### [facility] [address] [place], [address] IG% 0.200 Normal 0.0-0.9 [facility] Comment on above: Result Comment: IG% - Immature Granulocytes (promyelocytes, myelocytes and metamyelocytes) > 1% indicates that a LEFT SHIFT is Present. Performed By: #### L 501.9910, L500.4100, L500.4050, L100.0100 #### [facility] [address] [place], [address] Lymphocytes/100 WBC (Bld) 24.0 % Normal 19-41 [facility] Comment on above: Performed By: #### L 501.9910, L500.4100, L500.4050, L100.0100 #### [facility] [address] [place], [address] MCH (RBC) [Entitic mass] 29.5 pg Normal 27.0-32.0 [facility] Comment on above: Performed By: #### L 501.9910, L500.4100, L500.4050, L100.0100 #### [facility] [address] [place], [address] MCHC (RBC) [Mass/Vol] 33.8 g/dL Normal 32-36 [facility] Comment on above: Performed By: #### L 501.9910, L500.4100, L500.4050, L100.0100 #### [facility] [address] [place], [address] MCV (RBC) [Entitic vol] 87.1 fL Normal 80-94 [facility] Comment on above: Performed By: #### L 501.9910, L500.4100, L500.4050, L100.0100 #### [facility] [address] [place], [address] Monocytes/100 WBC (Bld) 8.1 % Normal 0-10 [facility] Comment on above: Performed By: #### L 501.9910, L500.4100, L500.4050, L100.0100 #### [facility] [address] [place], [address] Neutrophils/100 WBC (Bld) 64.0 % Normal 47-70 [facility] Comment on above: Performed By: #### L 501.9910, L500.4100, L500.4050, L100.0100 #### [facility] [address] [place], [address] Nucleated RBC (Bld) [#/Vol] 0 10*3/uL Normal 0-5 [facility] Comment on above: Performed By: #### L 501.9910, L500.4100, L500.4050, L100.0100 #### [facility] [address] [place], [address] Platelet mean volume (Bld) [Entitic vol] 10.0 fL Normal 6.2-12.0 [facility] Comment on above: Performed By: #### L 501.9910, L500.4100, L500.4050, L100.0100 #### [facility] [address] [place], [address] Platelets (Bld) [#/Vol] 204 10*3/uL Normal 150-450 [facility] Comment on above: Performed By: #### L 501.9910, L500.4100, L500.4050, L100.0100 #### [facility] [address] [place], [address] RBC (Bld) [#/Vol] 4.58 10*6/uL Low 4.6-6.2 [facility] Comment on above: Performed By: #### L 501.9910, L500.4100, L500.4050, L100.0100 #### [facility] [address] [place], [address] RDW SD 40.4 fl Normal 35.1-43.9 [facility] Comment on above: Performed By: #### L 501.9910, L500.4100, L500.4050, L100.0100 #### [facility] [address] [place], [address] WBC (Bld) [#/Vol] 6.4 10*3/uL Normal 4.4-11.0 [facility] Comment on above: Performed By: #### L 501.9910, L500.4100, L500.4050, L100.0100 #### [facility] [address] [place], [address] Comprehensive Metabolic Prof ilon 09-11-2024 Albumin [Mass/Vol] 4.5 g/dL Normal 3.5-5.0 [facility] Comment on above: Performed By: #### L 501.9910, L500.4100, L500.4050, L100.0100 #### [facility] [address] [place], [address] Albumin/Globulin [Mass ratio] 1.9 {ratio} Normal 0.9-2.4 [facility] Comment on above: Performed By: #### L 501.9910, L500.4100, L500.4050, L100.0100 #### [facility] [address] [place], [address] ALK PHOS 68 U/L Normal 40-129 [facility] Comment on above: Performed By: #### L 501.9910, L500.4100, L500.4050, L100.0100 #### [facility] [address] [place], [address] ALT [Catalytic activity/Vol] 72 U/L High <=46 [facility] Comment on above: Performed By: #### L 501.9910, L500.4100, L500.4050, L100.0100 #### [facility] [address] [place], [address] AST [Catalytic activity/Vol] 33 U/L Normal <=37 [facility] Comment on above: Performed By: #### L 501.9910, L500.4100, L500.4050, L100.0100 #### [facility] [address] [place], [address] Bilirubin [Mass/Vol] 0.30 mg/dL Normal 0.00-1.30 [facility] Comment on above: Performed By: #### L 501.9910, L500.4100, L500.4050, L100.0100 #### [facility] [address] [place], [address] BUN/CRE 17.0 RATIO Normal 10-20 [facility] Comment on above: Performed By: #### L 501.9910, L500.4100, L500.4050, L100.0100 #### [facility] [address] [place], [address] Calcium [Mass/Vol] 9.0 mg/dL Normal 7.6-11.0 [facility] Comment on above: Performed By: #### L 501.9910, L500.4100, L500.4050, L100.0100 #### [facility] [address] [place], [address] Chloride [Moles/Vol] 103 mmol/L Normal 98-108 [facility] Comment on above: Performed By: #### L 501.9910, L500.4100, L500.4050, L100.0100 #### [facility] [address] [place], [address] CO2 [Moles/Vol] 25.8 mmol/L Normal 21.0-32.0 [facility] Comment on above: Performed By: #### L 501.9910, L500.4100, L500.4050, L100.0100 #### [facility] [address] [place], [address] Creatinine [Mass/Vol] 0.87 mg/dL Normal 0.70-1.20 [facility] Comment on above: Performed By: #### L 501.9910, L500.4100, L500.4050, L100.0100 #### [facility] [address] [place], [address] GAP 12 Normal 5-15 [facility] Comment on above: Performed By: #### L 501.9910, L500.4100, L500.4050, L100.0100 #### [facility] [address] [place], [address] GFR/1.73 sq M.predicted among non-blacks MDRD (S/P/Bld) [Vol rate/Area] 108 mL/min/{1.73_m2} Normal >60 [facility] Comment on above: Result Comment: mL/m in/1.73m2 CKD-EPI Creatinine Equation (2020) Performed By: #### L 501.9910, L500.4100, L500.4050, L100.0100 #### [facility] [address] [place], [address] Globulin (S) [Mass/Vol] 2.4 g/dL Normal 2.2-4.2 [facility] Comment on above: Performed By: #### L 501.9910, L500.4100, L500.4050, L100.0100 #### [facility] [address] [place], [address] Glucose [Mass/Vol] 120 mg/dL High 70-99 [facility] Comment on above: Performed By: #### L 501.9910, L500.4100, L500.4050, L100.0100 #### [facility] [address] [place], [address] Potassium [Moles/Vol] 3.7 mmol/L Normal 3.3-5.1 [facility] Comment on above: Performed By: #### L 501.9910, L500.4100, L500.4050, L100.0100 #### [facility] [address] [place], [address] Sodium [Moles/Vol] 141 mmol/L Normal 133-145 [facility] Comment on above: Performed By: #### L 501.9910, L500.4100, L500.4050, L100.0100 #### [facility] [address] [place], [address] T PROT 6.9 g/dL Normal 5.9-8.4 [facility] Comment on above: Performed By: #### L 501.9910, L500.4100, L500.4050, L100.0100 #### [facility] [address] [place], [address] Urea nitrogen [Mass/Vol] 15 mg/dL Normal 4-19 [facility] Comment on above: Performed By: #### L 501.9910, L500.4100, L500.4050, L100.0100 #### [facility] [address] [place], [address] Internal Medicine Office Vis [facility] 09-11-2024 Internal Medicine Office Visit [facility] [address] [place] [address] [place] [address] OFFICE VISIT Date of Service: 09/11/24 MR#: [id number] Acct: [id number] Name: CHRISTA LOPEZ Rep #: [id number] : 1980 Provider: Dr. Yareli miller MD Age/Sex: 44/M Location: [facility] Status: Signed Intake Vital Signs 02/05/24 18:19 04/28/24 11:30 07/16/24 08:20 09/11/24 13:52 Height 5 ft 10 in 5 ft 10 in 5 ft 10 in 5 ft 10 in Weight: 227 lb BMI 32.5 BP 130/98 H Blood Pressure Location Lt brachial Position Sitting Respiration 16 Pulse 88 Pulse Source Monitor Temp 96.7 F L Temp Source Temporal Pulse Oximetry (%) 97 Oxygen Delivery Method room air Intake Visit Reasons: 3 M FU Chief Complaint: 3 M FU Is patient in pain?: No Allergies No Known Allergies Allergy (Verified 09/11/24 13:51) Medications ???Medication ???Instructions ???Recorded ???Confirmed ???Type rosuvastatin 10 mg tablet 10 mg PO QHS #90 tabs 04/27/24 Rx clonidine HCl 0.1 mg tablet 0.1 mg PO QHS #90 tabs 04/28/24 Rx hydroxyzine HCl 10 mg tablet 10 mg PO TID PRN anxiety #90 tabs 04/28/24 09/11/24 Rx naltrexone 50 mg tablet 50 mg PO HS #90 tabs 04/28/2408/30 Rx venlafaxine 75 mg capsule,extended 75 mg PO DAILY #90 caps 04/28/24 09/11/24 Rx release 24 hr ipratropium bromide 21 mcg (0.03 2 spray intranasal BID-TID PRN 09/11/24 Rx %) nasal spray postnasal drainage #30 mL hydrochlorothiazide 25 mg tablet See Rx Instructions .Route 5 09/11/24 Rx .COMPLEX #90 tabs metformin 500 mg tablet,extended 1,000 mg (2 x 500 mg) PO DAILY 11/2309/11/24 Rx release 24 hr #180 tabs lisinopril 40 mg tablet 40 mg PO DAILY #90 tabs 08/14/24 0 09/11/24 Rx cariprazine 1.5 mg capsule 1.5 mg PO DAILY #90 caps 08/25/24 09/11/24 Rx (Vraylar) glimepiride 4 mg tablet 6 mg (1.5 x 4 mg) PO QAM 3 months 09/11/24 09/11/24 Rx #135 tabs PFSH Medical History Screening for prostate cancer Dribbling following urination Low back pain Chronic low back pain with bilateral sciatica Urinary frequency Alcohol use disorder in remission Major depressive disorder Opioid use disorder, severe, in early remission Hyperlipidemia Tobacco abuse counseling Hypertension Anxiety History of drug abuse Type 2 diabetes mellitus History of alcohol abuse Surgical History No significant past surgical history Family History Father Alcoholism Anxiety Depression High cholesterol Mother Anemia Autoimmune disease High cholesterol Grandfather Cancer Diabetes Heart disease Grandmother Cancer Skin cancer CVA (cerebral vascular accident) Brother Respiratory disease Social History Smoking Status: Current some day smoker alcohol intake: never substance use type: does not use what type of physical activity do you participate in: none HPI HPI Chief Complaint: 3 M FU Details: CHRISTA LOPEZ, is a 44 M who presents to the office today for follow-up of his chronic medical conditions. No acute concerns at this time. History of diabetes mellitus type 2, A1c today is at 7.3 up from his last visit. He reports compliance with his medication but admits that he has not been as compliant with his diet. Also not as active. History of hypertension, blood pressure as well as slightly elevated. Blood pressure today at 130/98 mmHg. Currently on lisinopril and hydrochlorothiazide. Also on clonidine which he takes on ly at night. This is being prescribed by psychiatry. Other chronic medical conditions are stable. ROS Const Constitutional: No body ache, chills, excessive sweating, fatigue, fever(s), frequent falls, headache(s), snoring, weakness, sleep problems or change in appetite Eyes Eyes: No blurry vision, change in vision, bulging eyes, floaters, visual disturbances or Light sensitivity ENT ENT: No abnormal hearing, ear or mastoid pain, tinnitus, balance problems, nosebleed/epistaxis, nasal congestion, nasal discharge, headache(s), neck pain or sore throat Resp Respiratory: No cough, excessive phlegm production, pain on inspiration, shortness of breath, snoring or wheezing Cardio Cardiology: No chest pain at rest, chest pain with exertion, excessive sweating, shortness of breath, dyspnea on exertion, lightheadedness, orthopnea or palpitations Gastro GI: No abdominal pain, change in bowel habits, constipation, cramping, diarrhea or nausea/dyspepsia Genitourinary Male: No burning urination, painful urination, urinary incontinence or urinary frequency Musc Musculoskeletal: No abnormal gait, joint pain (more content not included)... Normal [facility] Lipid Profileon 09-11-2024 CHOL:HDL 4.07 Normal [facility] Comment on above: Performed By: #### L 501.9910, L500.4100, L500.4050, L100.0100 ####[facility] [address] [place], [address] Cholesterol [Mass/Vol] 195 mg/dL Normal <=200 [facility] Comment on above: Result Comment: Chol esterol level, Desirable <200 mg/dL Borderline high cholesterol 200-239 mg/dL High cholesterol >=240 mg/dL Recommendations of the NCEP Adult Treatment Panel for the following risk-cutoff thresholds for the [place] population. Performed By: #### L 501.9910, L500.4100, L500.4050, L100.0100 ####[facility] [address] [place], [address] Cholesterol in HDL [Mass/Vol] 48 mg/dL Normal [facility] Comment on above: Result Comment: Herlinda onal Cholesterol Education Program (NCEP) guidelines: <40 mg/dL: Low HDL-cholesterol (major risk factor for CHD) >= 60 mg/dL: High HDL-cholesterol (negative risk factor for CHD) HDL-cholesterol is affected by a number of factors, e.g. smoking, exercise, hormones, sex and age. Performed By: #### L 501.9910, L500.4100, L500.4050, L100.0100 ####[facility] [address] [place], [address] Cholesterol in LDL [Mass/Vol] 108 mg/dL Normal [facility] Comment on above: Result Comment: Bord zmonzg=238-434 mg/dL Higher Sxgt=976 mg/dL or greater Performed By: #### L 501.9910, L500.4100, L500.4050, L100.0100 ####[facility] [address] [place], [address] Cholesterol in VLDL [Mass/Vol] 39 mg/dL Normal 5-40 [facility] Comment on above: Performed By: #### L 501.9910, L500.4100, L500.4050, L100.0100 ####[facility] [address] [place], [address] Triglyceride [Mass/Vol] 196 mg/dL Normal [facility] Comment on above: Result Comment: The drugs N-Acetylcysteine and Metamizole may falsely depress this assay. Normal range: <150 mg/dL Borderline High: 150-199 mg/dL High: 200-499 mg/dL Very High: >500 mg/dL Performed By: #### L 501.9910, L500.4100, L500.4050, L100.0100 ####[facility] [address] [place], [address] PSA,Total - Annual Screenon 09-11-2024 PSA,TOT SCREEN 0.43 ng/mL Normal 0.02-4.00 [facility] Comment on above: Result Comment: This test was performed using the [employer] tPSA method. Measured values of a patient??sample can vary depending on the testing procedure used. PSA values determined on patient samples by different testing procedures cannot be used interchangeably. If there is a change in PSA assays while monitoring therapy, sequential testing should be performed to confirm baseline values. Performed By: #### L 501.9910, L500.4100, L500.4050, L100.0100 ####[facility] [address] [place], [place], [address] Urgent Care Visit Reporton 0 07-16-2024 Urgent Care Visit Report [facility] [address], [address] [place], [place] [address] OFFICE VISIT Date of Service: 07/16/24 MR#: [id number] Acct: [id number] Name: JESSICACHRISTA KISER Parish Rep #: [id number] : 1980 Provider: FIOR Hayes Age/Sex: 44/M Location: [facility] Status: Signed Intake Vital Signs 07/10/24 12:25 07/16/24 08:20 Height 5 ft 10 in 5 ft 10 in Weight: 217 lb 218 lb 6 oz BMI 31.1 31.3 BP 118/78 138/78 H Blood Pressure Location Lt brachial Lt brachial Position Sitting Sitting Respiration 16 17 Pulse 96 67 Pulse Source Monitor NIBP Temp 98.3 F 97.6 F L Temp Source Temporal Oral Pulse Oximetry (%) 983 98 Oxygen Delivery Method room air room air Intake Visit Reasons: SINUS, SORE THROAT Chief Complaint: ALVAREZ, face/eye pressure, mucus, cough Production Control Analyst Required: No Is patient in pain?: No Allergies No Known Allergies Allergy (Verified 07/16/24 08:21) Have you fallen in the past year?: No Nurse's Note: ALVAREZ, face/eye pressure, mucus, cough x 3 days. denies fever. hx sinus infections, feels same. [facility] Medical History (Updated 07/16/24 @ 08:26 by Abdi CHILDRESS, PA) Screening for prostate cancer Dribbling following urination Low back pain Chronic low back pain with bilateral sciatica Urinary frequency Alcohol use disorder in remission Major depressive disorder Opioid use disorder, severe, in early remission Hyperlipidemia Tobacco abuse counseling Hypertension Anxiety History of drug abuse Type 2 diabetes mellitus History of alcohol abuse Surgical History (Updated 07/16/24 @ 08:22 by Regina Schuler) No significant past surgical history Family History Father Alcoholism Anxiety Depression High cholesterol Mother Anemia Autoimmune disease High cholesterol Grandfather Cancer Diabetes Heart disease Grandmother Cancer Skin cancer CVA (cerebral vascular accident) Brother Respiratory disease Social History Smoking Status: Current some day smoker alcohol intake: never substance use type: does not use what type of physical activity do you participate in: none HPI HPI Chief Complaint: ALVAREZ, face/eye pressure, mucus, cough Details: CHRISTA LOPEZ, is a 44 M who presents to the office today for complaint of headache, face and sinus pressure as well as cough. Patient denies hemoptysis, shortness of breath or difficulty breathing. No fever, chills, sweats. No nausea, vomiting or diarrhea. No loss of taste or smell. He does state having a history of sinus infections with similar symptoms. No other associated symptoms or alleviating/aggravatin g factors. ROS Const Constitutional: No other (6 system ROS completed with pertinent findings in the HPI otherwise normal.) Exam Const General: cooperative and healthy appearing HENMT Head: normal to inspection Ears: hearing grossly normal bilaterally, TM's normal bilaterally and EAC's normal Nose: nasal discharge purulent Face and sinus: sinus tenderness frontal and maxillary Mouth: oral mucosae normal Throat: abnormal tonsil bilaterally erythema and hypertrophy 1+ and postnasal drainage Resp Effort Inspection: normal respiratory effort Auscultation: Bilateral: Clear to Auscultation Cardio Palpation: normal PMI Rate: regular rate Rhythm: regular rhythm Neuro General: patient alert and CN's II-XI intact bilaterally Psych Appearance: grossly normal Mental Status: mental status grossly normal Coding Level of Care Code Off vis,new,level 3 Diagnoses Acute sinusitis J01.90 Assessment and Plan Assessment and Plan (1) Acute sinusitis: Status: Acute Medications: New amoxicillin-pot clavulanate 875-125 mg 1 TAB PO Q12H 10 days 20 tabs 0RF J01.90 - Acute sinusitis, unspecified ipratropium bromide administer into each nostril 2 sprays intranasal BID-TID PRN 30 mL 0RF postnasal drainage Plan Augmentin and Atrovent as prescribed today. Encouraged to get plenty of rest, drink lots of clear liquids, and use Tylenol or Ibuprofen (unless contraindicated) for fever and comfort. Patient also educated on other symptomatic management techniques. To be seen in 7-10 days if no improvement; sooner if worsening of symptoms. Patient advised of potential red flags and when appropriate to report to the ED. Patient verbalized understanding and agreement with all the above. Clinical Quality Measures Falls Risk Screening/Assistive Devices Have you fallen in the past year?: No 07/16/24 0827 Date Abdi Gambino Signature: Date (if applicable) CC: Normal [facility] Internal Medicine Office Vis [facility] 07-10-2024 Internal Medicine Office Visit [facility] [address] [place] [address] [place] [address] OFFICE VISIT Date of Service: 07/10/24 MR#: [id number] Acct: [id number] Name: CHRISTA LOPEZ Rep #: [id number] : 1980 Provider: FIOR Patel Age/Sex: 44/M Location: [facility] Status: Signed Intake Vital Signs 04/28/24 11:30 07/10/24 12:25 Height 5 ft 10 in 5 ft 10 in Weight: 217 lb 217 lb BMI 31.1 31.1 BP 134/88 H 118/78 Blood Pressure Location Lt brachial Lt brachial Position Sitting Sitting Respiration 16 16 Pulse 99 96 Pulse Source Monitor Monitor Temp 98.3 F Temp Source Temporal Pulse Oximetry (%) 983 Oxygen Delivery Method room air Intake Visit Reasons: acute - rash on face coming back Chief Complaint: rash Production Control Analyst Required: No Accompanied by: Self Is patient in pain?: No Allergies No Known Allergies Allergy (Verified 07/10/24 12:21) Medications ???Medication ???Instructions ???Recorded ???Confirmed ???Type glimepiride 4 mg tablet 4 mg PO QAM #90 tabs 04/27/2406/30 Rx hydrochlorothiazide 25 mg tablet See Rx Instructions .Route 5 07/10/24 Rx .COMPLEX #90 tabs rosuvastatin 10 mg tablet 10 mg PO QHS #90 tabs 04/27/2402/23 Rx cariprazine 1.5 mg capsule 1.5 mg PO DAILY #90 caps 04/28/24 07/10/24 Rx (Vraylar) clonidine HCl 0.1 mg tablet 0.1 mg PO QHS #90 tabs 04/28/24 Rx hydroxyzine HCl 10 mg tablet 10 mg PO TID PRN anxiety #90 tabs 04/28/24 07/10/24 Rx naltrexone 50 mg tablet 50 mg PO HS #90 tabs 04/28/2406/30 Rx venlafaxine 75 mg capsule,extended 75 mg PO DAILY #90 caps 04/28/24 07/10/24 Rx release 24 hr lisinopril 40 mg tablet 40 mg PO DAILY #90 tabs 05/11/24 0 07/10/24 Rx metformin 500 mg tablet,extended 1,000 mg (2 x 500 mg) PO DAILY 01/2307/10/24 Rx release 24 hr #180 tabs Have you fallen in the past year?: No Nurse's Note: 2 times in 2 weeks to urgent care for rash rash is gone now [facility] Medical History Screening for prostate cancer Dribbling following urination Low back pain Chronic low back pain with bilateral sciatica Urinary frequency Alcohol use disorder in remission Major depressive disorder Opioid use disorder, severe, in early remission Hyperlipidemia Tobacco abuse counseling Hypertension Anxiety History of drug abuse Type 2 diabetes mellitus History of alcohol abuse Family History Father Alcoholism Anxiety Depression High cholesterol Mother Anemia Autoimmune disease High cholesterol Grandfather Cancer Diabetes Heart disease Grandmother Cancer Skin cancer CVA (cerebral vascular accident) Brother Respiratory disease Social History Smoking Status: Current some day smoker alcohol intake: never substance use type: does not use what type of physical activity do you participate in: none HPI HPI Chief Complaint: rash Details: CHRISTA LOPEZ, is a 44 M who presents to the office today for f/u on rash. Patient states that 2 weeks ago he had a rash on his face and abdomen. The rash was super itchy all over. [facility] up going to [facility] and was given prednisone. He states that it took a few days but after 3 days the rash resolved. Four days later it seems to come back but was not as bad. He went back and to [facility] and states that they did not want to give him more steroids. It has since resolved and has not come back. 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 No other changes such as soaps, clothes, diet/foods, supplements, or other changes. ROS Const Constitutional: No body ache, excessive sweating, fatigue, fever(s), frequent falls, headache(s), snoring, weakness, weight change, sleep problems or change in appetite Eyes Eyes: No blurry vision, change in vision, eye pain or Light sensitivity ENT ENT: No abnormal hearing, ear or mastoid pain, tinnitus, nasal congestion, headache(s), neck pain or sore throat Resp Respiratory: No cough, shortness of breath, snoring or wheezing Cardio Cardiology: No chest pain at rest, chest pain with exertion, excessive sweating, shortness of breath, dyspnea on exertion, lightheadedness, orthopnea or palpitations Gastro GI: No abdominal pain, change in bowel habits, constipation, cramping, diarrhea, nausea/dyspepsia or vomiting Genitourinary Male: No burning urination, painful urination, urinary incontinence, urinary frequency or blood in urine Musc Musculoskeletal: No abnormal gait, joint pain, back pain, limited range of motion, neck pain, nu (more content not included)... Normal [facility] MR/BMS.BPon 04-28-2024 MR/BMS.[address], [address] [place] [address] OFFICE VISIT Date of Service: 04/28/24 MR#: [id number] Acct: [id number] Name: CHRISTA LOPEZ Rep #: [id number] : 1980 Provider: Dr. Jong Shah se, Age/Sex: 44/M Location: [facility] Status: Signed Intake Vital Signs 02/05/24 18:19 04/28/24 11:30 Height 5 ft 10 in 5 ft 10 in Weight: 207 lb 217 lb BMI 29.7 31.1 BP 114/68 134/88 H Blood Pressure Location Lt brachial Lt brachial Position Sitting Sitting Respiration 16 16 Pulse 100 99 Pulse Source Monitor Monitor Temp 98.3 F Pulse Oximetry (%) 98 Oxygen Delivery Method room air BP Intake Visit Reasons: 6 M FU Accompanied by: Self Allergies No Known Allergies Allergy (Verified 04/28/24 11:33) Medications ???Medication ???Instructions ???Recorded ???Confirmed ???Type metformin 500 mg tablet,extended 1,000 mg (2 x 500 mg) PO DAILY 01/27/24 04/28/24 Rx release 24 hr #180 tabs lisinopril 40 mg tablet 40 mg PO DAILY #90 tabs 02/14/24 04/28/24 Rx glimepiride 4 mg tablet 4 mg PO QAM #90 tabs 04/27/24 04/28/24 Rx hydrochlorothiazide 25 mg tablet See Rx Instructions .Route 04/27/24 04/28/24 Rx .COMPLEX #90 tabs rosuvastatin 10 mg tablet 10 mg PO QHS #90 tabs 04/27/24 04/28/24 Rx cariprazine 1.5 mg capsule 1.5 mg PO DAILY #90 caps 04/28/24 04/28/24 Rx (Vraylar) clonidine HCl 0.1 mg tablet 0.1 mg PO QHS #90 tabs 04/28/24 04/28/24 Rx hydroxyzine HCl 10 mg tablet 10 mg PO TID PRN anxiety #90 tabs 04/28/24 04/28/24 Rx naltrexone 50 mg tablet 50 mg PO HS #90 tabs 04/28/24 04/28/24 Rx venlafaxine 75 mg capsule,extended 75 mg PO DAILY #90 caps 04/28/24 04/28/24 Rx release 24 hr [facility] Medical History (Updated 02/05/24 @ 18:[address] Yareli Etienne MD) Screening for prostate cancer Dribbling following urination Low back pain Chronic low back pain with bilateral sciatica Urinary frequency Alcohol use disorder in remission Major depressive disorder Opioid use disorder, severe, in early remission Hyperlipidemia Tobacco abuse counseling Hypertension Anxiety History of drug abuse Type 2 diabetes mellitus History of alcohol abuse Family History Father Alcoholism Anxiety Depression High cholesterol Mother Anemia Autoimmune disease High cholesterol Grandfather Cancer Diabetes Heart disease Grandmother Cancer Skin cancer CVA (cerebral vascular accident) Brother Respiratory disease Social History Smoking Status: Current some day smoker alcohol intake: never substance use type: does not use what type of physical activity do you participate in: none HPI History of Present Illness History provided by: patient HPI: Christa Lopez is a 44 year old male who presents today for follow up evaluation. Patient reports that he has been pretty good. Has been feeling some more anxiety in the recent past, over the last month. Can at times take a nap which can help take the edge off. Does feel like part of this is seasonal changes. Denies any significant depression at this time. Has been sober for nearly 2 years now. Home life has been largely good. Blood sugar remains somewhat higher at 7.2. Work has been stable. Sleep has been really good. Denies SI/HI or AVH. Review of Systems Constitutional Denies: fever(s), chills, change in weight or fatigue Eyes Denies: change in vision or blurry vision Ears, Nose, Mouth, Throat Denies: throat pain, neck pain or change in hearing Cardiovascular Denies: chest pain, palpitations or dyspnea Respiratory Denies: dyspnea, cough or wheezing Gastrointestinal Denies: abdominal pain, nausea, vomiting, diarrhea or constipation Genitourinary Denies: dysuria or urinary frequency Musculoskeletal Denies: back pain, neck pain, joint pain or muscle weakness Integumentary/Breast Denies: rash or new lesions Neurological Denies: headache(s), dizziness or confusion Endocrine Denies: fatigue or excessive sweating Hematologic/Lymphatic Denies: easy bruising or easy bleeding Allergic/Immunologic Denies: wheezing Exam Mental Status Exam - Psych Appearance casually dressed and no apparent distress Attitude cooperative and calm Activity/Motor Behavior MSE activity/motor behavior finding no adventitious movements Speech regular rate, regular volume and regular prosody Mood other (Good but mildly more anxious) Affect full range Thought Process linear, logical and coherent Thought Content no delusions and no hallucinations Suicidal Ideation none Homicidal Ideation none Attention intact Concentration intact Sensorium/Orientation awake, alert and oriented x3 Memor (more content not included)... Normal [facility] Internal Medicine Office Vis [facility] 02-05-2024 Internal Medicine Office Visit [facility] [address] [place] [address] [place] [address] OFFICE VISIT Date of Service: 02/05/24 MR#: [id number] Acct: [id number] Name: CHRISTA LOPEZ Rep #: [id number] : 1980 Provider: Dr. Yareli miller MD Age/Sex: 43/M Location: [facility] Status: Signed Intake Vital Signs 10/30/23 18:15 02/05/24 18:19 Height 5 ft 10 in 5 ft 10 in Weight: 207 lb BMI 29.7 BP 114/68 Blood Pressure Location Lt brachial Position Sitting Respiration 16 Pulse 100 Pulse Source Monitor Temp 98.3 F Temp Source Temporal Pulse Oximetry (%) 98 Oxygen Delivery Method room air Intake Visit Reasons: 3 m fu Chief Complaint: follow up chronic medical conditions. Production Control Analyst Required: No Is patient in pain?: No Allergies No Known Allergies Allergy (Verified 02/05/24 17:51) Medications ???Medication ???Instructions ???Recorded ???Confirmed ???Type lisinopril 40 mg tablet 40 mg PO DAILY #90 tabs 08/14/23 02/05/24 Rx cariprazine 1.5 mg capsule 1.5 mg PO DAILY #90 caps 08/27/23 02/05/24 Rx (Vraylar) clonidine HCl 0.1 mg tablet 0.1 mg PO QHS #90 tabs 08/27/23 02/05/24 Rx naltrexone 50 mg tablet 50 mg PO HS #90 tabs 08/27/23 02/05/24 Rx venlafaxine 75 mg capsule,extended 75 mg PO DAILY #90 caps 08/27/23 02/05/24 Rx release 24 hr rosuvastatin 10 mg tablet 10 mg PO QHS #90 tabs 10/30/23 02/05/24 Rx glimepiride 4 mg tablet 4 mg PO QAM #90 tabs 01/27/24 02/05/24 Rx hydrochlorothiazide 25 mg tablet See Rx Instructions .Route 01/27/24 02/05/24 Rx .COMPLEX #90 tabs metformin 500 mg tablet,extended 1,000 mg (2 x 500 mg) PO DAILY 01/27/24 02/05/24 Rx release 24 hr #180 tabs Nurse's Note: Declines flu vaccine today. [facility] Medical History (Updated 02/05/24 @ 18:[address] Yareli Etienne MD) Screening for prostate cancer Dribbling following urination Low back pain Chronic low back pain with bilateral sciatica Urinary frequency Alcohol use disorder in remission Major depressive disorder Opioid use disorder, severe, in early remission Hyperlipidemia Tobacco abuse counseling Hypertension Anxiety History of drug abuse Type 2 diabetes mellitus History of alcohol abuse Family History Father Alcoholism Anxiety Depression High cholesterol Mother Anemia Autoimmune disease High cholesterol Grandfather Cancer Diabetes Heart disease Grandmother Cancer Skin cancer CVA (cerebral vascular accident) Brother Respiratory disease Social History Smoking Status: Current some day smoker alcohol intake: never substance use type: does not use what type of physical activity do you participate in: none HPI HPI Chief Complaint: follow up chronic medical conditions. Details: CHRISTA LOPEZ, is a 43 M who presents to the office today for follow-up of his chronic conditions. Also has some concerns. He states that lately, he has noted dribbling following urination. No other significant associated factors. No known history of BPH. No significant family history for prostate cancer. No pelvic pain reported. A1c is at 7.2 up from 6.2. He admits that he has not been as consistent with his diet has he had done prior to his last visit. Reports compliance with his medication. Plans to make changes. Other chronic conditions stable. ROS Const Constitutional: No body ache, chills, excessive sweating, fatigue, fever(s), frequent falls, headache(s), snoring, weakness, sleep problems or change in appetite Eyes Eyes: No blurry vision, change in vision, bulging eyes, floaters, visual disturbances, eye pain or Light sensitivity ENT ENT: No abnormal hearing, ear or mastoid pain, tinnitus, balance problems, nosebleed/epistaxis, nasal congestion, headache(s), neck pain or sore throat Resp Respiratory: No cough, excessive phlegm production, pain on inspiration, shortness of breath, snoring or wheezing Cardio Cardiology: No chest pain at rest, chest pain with exertion, excessive sweating, shortness of breath, dyspnea on exertion, lightheadedness, orthopnea or palpitations Gastro GI: No abdominal pain, change in bowel habits, constipation, cramping, diarrhea, nausea/dyspepsia or vomiting Genitourinary Male: No burning urination, painful urination, urinary incontinence, urinary frequency, suprapubic fullness or side pain Musc Musculoskeletal: No abnormal gait, joint pain, back pain, limited range of motion, loss of height, muscle cramps, neck pain or numbness Skin Skin: No dry skin, redness, lesions, itchy eyes, rash or wounds Neuro Neurology: No abnormal gait, abnormal hearing, behavioral changes, unsteady gait/balance, weakness, frequent falls, headache(s), memory (more content not included)... Normal [facility] Comprehensive Metabolic Pane kirill 12-31-2021 Albumin [Mass/Vol] 3.9 g/dL Normal 3.2-5.5 [facility] Comment on above: Performed By: #### U A, URDS #### [facility] [address] Albumin/Globulin [Mass ratio] 1.6 {ratio} Normal [facility] Comment on above: Performed By: #### U A, URDS #### [facility] [address] ALP [Catalytic activity/Vol] 67 U/L Normal 32-92 [facility] Comment on above: Performed By: #### U A, URDS #### [facility] [address] ALT [Catalytic activity/Vol] 15 U/L Normal 10-60 [facility] Comment on above: Performed By: #### U A, URDS #### [facility] [address] Anion gap [Moles/Vol] 14.3 mmol/L Normal 6.0-15.0 [facility] Comment on above: Performed By: #### U A, URDS #### [facility] [address] [place] [id number] [facility] AST [Catalytic activity/Vol] 13 U/L Normal 10-42 [facility] Comment on above: Performed By: #### U A, URDS #### [facility] [address] [place] [address] [place] Bilirubin [Mass/Vol] 0.3 mg/dL Normal 0.3-1.2 [facility] Comment on above: Performed By: #### U A, URDS #### [facility] [address] Calcium [Mass/Vol] 9.3 mg/dL Normal 8.2-10.2 [facility] Comment on above: Performed By: #### U A, URDS #### [facility] [address] Chloride [Moles/Vol] 101 mmol/L Normal 95-114 [facility] Comment on above: Performed By: #### U A, URDS #### [facility] [address] [place] [address] CO2 [Moles/Vol] 27.9 mmol/L Normal 22.0-30.0 [facility] Comment on above: Performed By: #### U A, URDS #### [address] Creatinine [Mass/Vol] 0.83 mg/dL Normal 0.64-1.27 [facility] Comment on above: Performed By: #### U A, URDS #### [address] Creatinine Clr Calc Pharmacy 136.57 [facility] Comment on above: Result Comment: PERF ORMED BY: [place] [address] PATHOLOGIST FOOD AND NUTRITION SERVICES SUPERVISOR BELGICA ANAYA M.D. Performed By: #### U A, URDS #### [address] Estimated GFR ( Camilla > 60 [facility] Comment on above: Result Comment: GFR estimated reference range: According to KDOQI guidelines, <60 ml/min/1.73m2 is sufficient to diagnose a patient with chronic kidney disease. Performed By: #### U A, URDS #### [facility] [address] [place] [address] Estimated GFR (Non- Am > 60 [facility] Comment on above: Performed By: #### U A, URDS #### [facility] [address] [place] [address] Globulin (S) [Mass/Vol] 2.5 g/dL Normal [facility] Comment on above: Performed By: #### U A, URDS #### [facility] [address] [place] [address] [place] Glucose [Mass/Vol] 250 mg/dL High 70-100 [facility] Comment on above: Result Comment: [place] Glucose Reference Range is dependent on time and content of last meal. Glucose of more than 200 mg/dL in a nonstressed, ambulatory subject supports the diagnosis of Diabetes Mellitus. ADA recommended reference range Performed By: #### U A, URDS #### [facility] [address] [place] [address] [place] Potassium [Moles/Vol] 4.2 mmol/L Normal 3.5-5.1 [facility] Comment on above: Performed By: #### U A, URDS #### [facility] [address] Protein [Mass/Vol] 6.4 g/dL Normal 6.1-7.9 [facility] Comment on above: Performed By: #### U A, URDS #### [facility] [address] Sodium [Moles/Vol] 139 mmol/L Normal 136-146 [facility] Comment on above: Performed By: #### U A, URDS #### [facility] [address] [place] [id number] [place] Urea nitrogen [Mass/Vol] 17 mg/dL Normal 9-23 [facility] Comment on above: Performed By: #### U A, URDS #### [facility] [address] [place] [id number] [facility] ECG 12 lead ECGon 12-28-2021 ECG 12 lead ECG [facility] [address] [place] [address] [place] [address] Electrocardiograph Report Signed Patient: Christa Lopez MR#: [id number] : 1980 Acct:[id number] Age/Sex: 41 / M ADM Date: 12/27/21 Loc: Room: [address] [place] [address] Type: DIS IN Attending Dr: Loi Quiñones MD Ordering Provider: Darrel Quiñones MD Date of Service: 12/28/21 ECG/ECG 12 lead ECG: ANTIPSYCHOTIC THERAPY Copies to: Test Reason : Blood Pressure : / mmHG Vent. Rate : 070 BPM Atrial Rate : 070 BPM P-R Int : 190 ms QRS Dur : 096 ms QT Int : 398 ms P-R-T Axes : 055 061 081 degrees QTc Int : 429 ms Normal sinus rhythm Nonspecific T wave abnormality Abnormal ECG No previous ECGs available Confirmed by [facility]Y [facility]IRA [id number] on 12/29/2021 4:10:21 PM Referred By: Electronically Signed By:TERRI AYALA MD [facility] Transcribed By: MUS Signed By Jcarlos Ayala MD 12/29/21 1610 Normal [facility] Albumin [Mass/volume] in Ser um or PlasmaOrdered By: Juan Alberto Hamilton on 12-27-2021 Albumin [Mass/Vol] 4.2 g/dL 3.2-5.5 [facility] Amphetamine Screen Ql (U)Ord ered By: Juan Alberto Hamilton on 12-27-2021 Amphetamines Ql (U) Negative Negative [facility] Barbiturates [Presence] in U rineOrdered By: Juan Alberto Hamilton on 12-27-2021 Barbiturates Ql (U) Negative Negative [facility] Basophils Auto (Bld) [#/Vol] Ordered By: Juan Alberto Hamilton on 12-27-2021 Basophils (Bld) [#/Vol] 0.1 10*3/uL 0.0-0.2 [facility] Basophils/100 WBC Auto (Bld) Ordered By: Juan Alberto Hamilton on 12-27-2021 Basophils/100 WBC (Bld) 0.7 % . F [facility] Benzodiazepines [Presence] i n UrineOrdered By: Juan Alberto Hamilton on 12-27-2021 Benzodiazepines Ql (U) Negative Negative [facility] Bilirubin Test strip Ql (U)O rdered By: Juan Alberto Hamilton on 12-27-2021 Bilirubin Ql (U) Negative Negative [facility] Blood hemoglobin measurement (mass/volume)Ordered By: Juan Alberto Hamilton on 12-27-2021 Hemoglobin (Bld) [Mass/Vol] 15.4 g/dL 13.0-17.0 [facility] Blood leukocytes automated c ount (number/volume)Ordered By: Juan Alberto Hamilton on 12-27-2021 WBC (Bld) [#/Vol] 8.7 10*3/uL 4.5-11.0 [facility] COVID-19 Antigenon 2 COVID-19 Antigen Healthcare Worker?: N Reference Range: Negative Negative results, from patients with symptom onset beyond five days, should be treated as presumptive and confirmation with a molecular assay, if necessary, for patient management, may be performed. Negative results do not rule out COVID-19 and should not be used as the sole basis for treatment or patient management decisions, including infection control decisions. Negative results should be considered in the context of a patient's recent exposures, history and the presence of clinical signs and symptoms consistent with COVID-19. The Pavel SARS Antigen SAMUEL does not differentiate between SARS-CoV and SARS-CoV-2. This test was developed and its performance characteristic determined by [employer] and validated at [facility]. This test has not been FDA cleared or approved. This test has been authorized by FDA under an Emergency Use Authorization (EUA). This test has been validated in accordance with the FDA's Guidance Document (Policy for Diagnostics Testing in Laboratories Certified to Perform High Complexity Testing under CLIA prior to Emergency Use Authorization for Coronavirus Disease-2019 during the Public Health Emergency) issued on July 02, 2019. This test is only authorized for the duration of time the declaration that circumstances exist justifying the authorization of the emergency use of in vitro diagnostic tests for detection of SARS-CoV-2 virus and/or diagnosis of COVID-19 infection under section 564(b)(1) of the Act, 21 U.S.C. 360bbb-3(b)(1), unless the authorization is terminated or revoked sooner. SARS-CoV+SARS-CoV-2 (COVID-19) Ag [Presence] in Respiratory specimen by Rapid immunoassay Negative for SARS Antigen by SAMUEL PERFORMED BY: [place] [address] PATHOLOGIST FOOD AND NUTRITION SERVICES SUPERVISOR BELGICA ANAYA M.D. Normal [facility] Comment on above: Performed By: #### C OVID-19 DONATO ZHAOEG #### [address] COVID-19 SOFIAOrdered By: Rona Hamilton on 12-27-2021 SARS-CoV+SARS-CoV-2 (COVID-19) Ag IA.rapid Ql (Resp) Negative Negative [facility] Comment on above: This is a duplicate Pavel SARS Antigen (SAMUEL) result to be used for statistical tracking purpose only. Cannabinoids [Presence] in U rine by Screen methodOrdered By: Juan Alberto Hamilton on 12-27-2021 Cannabinoids Screen Ql (U) Negative Negative [facility] Comment on above: These are unconfirme d results and should not be used for legal purposes. Drug Cut-Off Concentration: AMPH 1000 ng/mL YOCASTA 200 ng/mL HAYDER 200 ng/mL COCM 300 ng/mL OP 300 ng/mL PCP 25 ng/mL THC 20 ng/mL Color Auto (U)Ordered By: Rona Hamilton on 12-27-2021 Color (U) Yellow Yellow [facility] Complete Blood Count Auto Di ffon 12-27-2021 Basophils (Bld) [#/Vol] 0.1 10*3/uL Normal 0.0-0.2 [facility] Comment on above: Result Comment: PERF ORMED BY: [place] [address] PATHOLOGIST [employer] AND NUTRITION SERVICES SUPERVISOR BELGICA ANAYA M.D. Performed By: #### C BC, CMP, ETOH #### [facility] [address] [place] [address] [place] Basophils/100 WBC (Bld) 0.7 % Normal . F [facility] Comment on above: Performed By: #### C BC, CMP, ETOH #### [facility] [address] [place] [address] [place] Eosinophils (Bld) [#/Vol] 0.1 10*3/uL Normal 0.0-0.45 [facility] Comment on above: Performed By: #### C BC, CMP, ETOH #### [facility] [address] [place] [address] [place] Eosinophils/100 WBC (Bld) 0.7 % Normal . [facility] Comment on above: Performed By: #### C BC, CMP, ETOH #### [facility] [address] Erythrocyte distribution width (RBC) [Ratio] 13.2 % Normal 12.0-14.8 [facility] Comment on above: Performed By: #### C BC, CMP, ETOH #### [facility] [address] Hematocrit (Bld) [Volume fraction] 45.2 % Normal 38.8-50.0 [facility] Comment on above: Performed By: #### C BC, CMP, ETOH #### [address] Hemoglobin (Bld) [Mass/Vol] 15.4 g/dL Normal 13.0-17.0 [facility] Comment on above: Performed By: #### C BC, CMP, ETOH #### [address] Lymphocytes (Bld) [#/Vol] 1.4 10*3/uL Normal 1.00-4.8 [facility] Comment on above: Performed By: #### C BC, CMP, ETOH #### [address] Lymphocytes/100 WBC (Bld) 16.0 % Normal . [facility] Comment on above: Performed By: #### C BC, CMP, ETOH #### [address] MCH (RBC) [Entitic mass] 31.0 pg Normal 27.5-35.2 [facility] Comment on above: Performed By: #### C BC, CMP, ETOH #### [address] MCV (RBC) [Entitic vol] 91.1 fL Normal 83.5-101 F [facility] Comment on above: Performed By: #### C BC, CMP, ETOH #### [address] Mean Corpuscular HGB Conc 34.1 g/dL Normal 32.5-35.6 [facility] Comment on above: Performed By: #### C BC, CMP, ETOH #### [facility] [address] [place] [address] [place] Monocytes (Bld) [#/Vol] 0.4 10*3/uL Normal 0.0-0.8 [facility] Comment on above: Performed By: #### C BC, CMP, ETOH #### [facility] [address] [place] [id number] [place] Monocytes/100 WBC (Bld) 4.9 % Normal . F [facility] Comment on above: Performed By: #### C BC, CMP, ETOH #### [facility] [address] [place] [address] [place] Neutrophils (Bld) [#/Vol] 6.7 10*3/uL Normal 1.8-7.7 [facility] Comment on above: Performed By: #### C BC, CMP, ETOH #### [facility] [address] [place] [address] [place] Neutrophils/100 WBC (Bld) 77.7 % Normal . [facility] Comment on above: Performed By: #### C BC, CMP, ETOH #### [facility] [address] [place] [address] [place] Nucleated RBC/100 WBC (Bld) [Ratio] 0.0 % Normal 0-0.5 [facility] Comment on above: Performed By: #### C BC, CMP, ETOH #### [facility] [address] [place] [address] [place] Platelet mean volume (Bld) [Entitic vol] 8.1 fL Normal 6.6-10.1 [facility] Comment on above: Performed By: #### C BC, CMP, ETOH #### [facility] [address] [place] [id number] [place] Platelets (Bld) [#/Vol] 218 10*3/uL Normal 150-450 [facility] Comment on above: Performed By: #### C BC, CMP, ETOH #### [facility] [address] [place] [address] [place] RBC (Bld) [#/Vol] 4.96 10*6/uL Normal 3.90-5.60 [facility] Comment on above: Performed By: #### C BC, CMP, ETOH #### [facility] [address] [place] [address] WBC (Bld) [#/Vol] 8.7 10*3/uL Normal 4.5-11.0 [facility] Comment on above: Performed By: #### C BC, CMP, ETOH #### [address] Comprehensive Metabolic Pane kirill 12-27-2021 Albumin [Mass/Vol] 4.2 g/dL Normal 3.2-5.5 [facility] Comment on above: Performed By: #### C BC, CMP, ETOH #### [address] Albumin/Globulin [Mass ratio] 1.6 {ratio} Normal [facility] Comment on above: Performed By: #### C BC, CMP, ETOH #### [address] ALP [Catalytic activity/Vol] 75 U/L Normal 32-92 [facility] Comment on above: Performed By: #### C BC, CMP, ETOH #### [address] ALT [Catalytic activity/Vol] 13 U/L Normal 10-60 [facility] Comment on above: Performed By: #### C BC, CMP, ETOH #### [address] Anion gap [Moles/Vol] 16.1 mmol/L High 6.0-15.0 [facility] Comment on above: Performed By: #### C BC, CMP, ETOH #### [address] AST [Catalytic activity/Vol] 16 U/L Normal 10-42 [facility] Comment on above: Performed By: #### C BC, CMP, ETOH #### [address] Bilirubin [Mass/Vol] 0.5 mg/dL Normal 0.3-1.2 [facility] Comment on above: Performed By: #### C BC, CMP, ETOH #### [facility] [address] Calcium [Mass/Vol] 9.0 mg/dL Normal 8.2-10.2 [facility] Comment on above: Performed By: #### C BC, CMP, ETOH #### [facility] [address] Chloride [Moles/Vol] 98 mmol/L Normal 95-114 [facility] Comment on above: Performed By: #### C BC, CMP, ETOH #### [facility] [address] CO2 [Moles/Vol] 28.3 mmol/L Normal 22.0-30.0 [facility] Comment on above: Performed By: #### C BC, CMP, ETOH #### [address] Creatinine [Mass/Vol] 0.82 mg/dL Normal 0.64-1.27 [facility] Comment on above: Performed By: #### C BC, CMP, ETOH #### [place] [address] [place] Creatinine Clr Calc Pharmacy 138.24 [facility] Comment on above: Result Comment: PERF ORMED BY: [place] [address] PATHOLOGIST [employer]UTRITION SERVICES SUPERVISOR BELGICA ANAYA M.D. Performed By: #### C BC, CMP, ETOH #### [address] Estimated GFR ( Camilla > 60 Normal [facility] Comment on above: Result Comment: GFR estimated reference range: According to KDOQI guidelines, <60 ml/min/1.73m2 is sufficient to diagnose a patient with chronic kidney disease. Performed By: #### C BC, CMP, ETOH #### [place] [address] [place] Estimated GFR (Non- Am > 60 Normal [facility] Comment on above: Performed By: #### C BC, CMP, ETOH #### [facility] [address] Globulin (S) [Mass/Vol] 2.7 g/dL Normal F [facility] Comment on above: Performed By: #### C BC, CMP, ETOH #### [facility] [address] [place] [address] [place] Glucose [Mass/Vol] 194 mg/dL High 70-100 [facility] Comment on above: Result Comment: [facility] Glucose Reference Range is dependent on time and content of last meal. Glucose of more than 200 mg/dL in a nonstressed, ambulatory subject supports the diagnosis of Diabetes Mellitus. ADA recommended reference range Performed By: #### C BC, CMP, ETOH #### [facility] [address] Potassium [Moles/Vol] 3.4 mmol/L Low 3.5-5.1 [facility] Comment on above: Performed By: #### C BC, CMP, ETOH #### [facility] [address] [place] [address] [place] Protein [Mass/Vol] 6.9 g/dL Normal 6.1-7.9 [facility] Comment on above: Performed By: #### C BC, CMP, ETOH #### [facility] [address] [place] [address] [place] Sodium [Moles/Vol] 139 mmol/L Normal 136-146 [facility] Comment on above: Performed By: #### C BC, CMP, ETOH #### [facility] [address] [place] [id number] [place] Urea nitrogen [Mass/Vol] 11 mg/dL Normal 9-23 [facility] Comment on above: Performed By: #### C BC, CMP, ETOH #### [facility] [address] [place] [address] [place] Creatinine and Glomerular fi ltration rate.predicted panel (S/P/Bld)Ordered By: Juan Alberto Hamilton on 12-27-2021 Creatinine [Mass/Vol] 0.82 mg/dL 0.64-1.27 [facility] Drug Screen,Urineon 12-28-19 Amphetamine Screen,Urine Negative Normal Negative [facility] Comment on above: Performed By: #### U A, URDS #### [address] Barbiturate Screen,Urine Negative Normal Negative [facility] Comment on above: Performed By: #### U A, URDS #### [address] Benzodiazepines Screen,Urine Negative Normal Negative [facility] Comment on above: Performed By: #### U A, URDS #### [address] Cannabinoid Screen,Urine Negative Normal Negative [facility] Comment on above: Result Comment: Thes e are unconfirmed results and should not be used for legal purposes. Drug Cut-Off Concentration: AMPH 1000 ng/mL YOCASTA 200 ng/mL HAYDER 200 ng/mL COCM 300 ng/mL OP 300 ng/mL PCP 25 ng/mL THC 20 ng/mL PERFORMED BY: [place] [address] PATHOLOGIST [employer] SERVICES SUPERVISOR BELGICA ANAYA M.D. Performed By: #### U A, URDS #### [address] Cocaine Screen,Urine Negative Normal Negative [facility] Comment on above: Performed By: #### U A, URDS #### [address] Opiate Screen,Urine Negative Normal Negative [facility] Comment on above: Performed By: #### U A, URDS #### [address] Phencyclidine Screen,Urine Negative Normal Negative [facility] Comment on above: Performed By: #### U A, URDS #### [address] Eosinophils Auto (Bld) [#/Vo l]Ordered By: Juan Alberto Hamilton on 12-27-2021 Eosinophils (Bld) [#/Vol] 0.1 10*3/uL 0.0-0.45 [facility] Eosinophils/100 WBC Auto (Bl d)Ordered By: Juan Alberto Hamilton on 12-27-2021 Eosinophils/100 WBC (Bld) 0.7 % . [facility] Erythrocyte distribution wid th Auto (RBC) [Ratio]Ordered By: Juan Alberto Hamilton on 12-27-2021 Erythrocyte distribution width (RBC) [Ratio] 13.2 % 12.0-14.8 [facility] Estimated glomerular filtrat ion rate (GFR) non- AmericanOrdered By: Juan Alberto Hamilton on 12-27-2021 GFR/1.73 sq M.predicted among non-blacks MDRD (S/P/Bld) [Vol rate/Area] > 60 mL/Min [facility] Ethyl Alcohol Profileon 12-01 Ethanol [Mass/Vol] mg/dL Normal [facility] Comment on above: Performed By: #### C BC, CMP, ETOH #### [facility] [address] Percent Ethanol Not performed Normal [facility] Comment on above: Result Comment: PERF ORMED BY: [place] [address] PATHOLOGIST FOOD AND NUTRITION SERVICES SUPERVISOR BELGICA ANAYA M.D. Performed By: #### C BC, CMP, ETOH #### [facility] [address] [place] [address] Globulin Calc (S) [Mass/Vol] Ordered By: Juan Alberto Hamilton on 12-27-2021 Globulin (S) [Mass/Vol] 2.7 g/dL F [facility] Hematocrit Auto (Bld) [Volum e fraction]Ordered By: Juan Alberto Hamilton on 12-27-2021 Hematocrit (Bld) [Volume fraction] 45.2 % 38.8-50.0 [facility] Ketones Auto test strip (U) [Mass/Vol]Ordered By: Juan Alberto Hamilton on 12-27-2021 Ketones (U) [Mass/Vol] 1+ Negative Fi relaFormerly [facility] Laboratory - Drug toxicology Ordered By: Juan Alberto Hamilton on 12-27-2021 Opiates Ql (U) Negative Negative [facility] Laboratory - Hematology and Cell countsOrdered By: Juan Alberto Hamilton on 12-27-2021 Nucleated RBC/100 WBC (Bld) [Ratio] 0.0 % 0-0.5 [facility] Lipid Panelon 12-27-2021 Cholesterol [Mass/Vol] 328 mg/dL High 140-200 [facility] Comment on above: Order Comment: MIGUEL ANGEL Lovell Comment USE FROM ER PLEASE Result Comment: Chol less than 200 mg/dl low risk Chol 201-239 mg/dl borderline risk Chol 240 mg/dl and greater high risk Performed By: #### L IPID, TSH3 wRFLX, [id number] #### [facility] [address] [place] [address] [place] Cholesterol in HDL [Mass/Vol] 42 mg/dL Normal 29-71 [facility] Comment on above: Order Comment: MIGUEL ANGEL Lovell Comment USE FROM ER PLEASE Result Comment: HDL CHOL ATP-III CLASSIFICATION Cardiovascular Risk HDL > or equal to 60 mg/dL LOW HDL < 40 mg/dL HIGH Performed By: #### L IPID, TSH3 wRFLX, [id number] #### [facility] [address] [place] [address] [place] Cholesterol.total/Choles terol in HDL [Mass ratio] 7.8 {ratio} Normal <5.0 [facility] Comment on above: Order Comment: MIGUEL ANGEL Lovell Comment USE FROM ER PLEASE Performed By: #### L IPID, TSH3 wRFLX, [id number] #### [facility] [address] [place] [address] [place] LDL Cholesterol,Calculated 229 mg/dL High 0-100 [facility] Comment on above: Order Comment: MIGUEL ANGEL Lovell Comment USE FROM ER PLEASE Result Comment: LDL ATP III CLASSIFICATION LDL less than 100 mg/dL Optimal LDL 100-129 mg/dL Near or above optimal LDL 130-159 mg/dL Borderline high LDL 160-189 mg/dL High LDL greater than 189 mg/dL Very high Performed By: #### L IPID, TSH3 wRFLX, [id number] #### [facility] [address] [place] [address] [place] Triglyceride w/Reflex 285 mg/dL High 35-149 [facility] Comment on above: Order Comment: MIGUEL ANGEL Lovell Comment USE FROM ER PLEASE Result Comment: TRIG ATP III CLASSIFICATION TRIG less than 150 mg/dL Normal TRIG 150-199 mg/dL Borderline high TRIG 200-500 mg/dL High TRIG greater than 500 mg/dL Very high Standard traceable to the Center for Disease Conrtrol and Prevention (CDC) test method. Performed By: #### L IPID, TSH3 wRFLX, [id number] #### [facility] [address] VLDL CHOLESTEROL 57 mg/dL Normal [facility] Comment on above: Order Comment: MIGUEL ANGEL Lovell Comment USE FROM ER PLEASE Performed By: #### L IPID, TSH3 wRFLX, [id number] #### [facility] [address] Lymphocytes Auto (Bld) [#/Vo l]Ordered By: Juan Alberto Hamilton on 12-27-2021 Lymphocytes (Bld) [#/Vol] 1.4 10*3/uL 1.00-4.8 [facility] Lymphocytes/100 WBC Auto (Bl d)Ordered By: Juan Alberto Hamilton on 12-27-2021 Lymphocytes/100 WBC (Bld) 16.0 % . [facility] MCH Auto (RBC) [Entitic mass ]Ordered By: Juan Alberto Hamilton on 12-27-2021 MCH (RBC) [Entitic mass] 31.0 pg 27.5-35.2 [facility] MCHC Auto (RBC) [Mass/Vol]Or dered By: Juan Alberto Hamilton on 12-27-2021 MCHC (RBC) [Mass/Vol] 34.1 g/dL 32.5-35.6 [facility] MCV Auto (RBC) [Entitic vol] Ordered By: Juan Alberto Hamilton on 12-27-2021 MCV (RBC) [Entitic vol] 91.1 fL 83.5-101 F [facility] Monocytes Auto (Bld) [#/Vol] Ordered By: Juan Alberto Hamilton on 12-27-2021 Monocytes (Bld) [#/Vol] 0.4 10*3/uL 0.0-0.8 [facility] Monocytes/100 WBC Auto (Bld) Ordered By: Juan Alberto Hamilton on 12-27-2021 Monocytes/100 WBC (Bld) 4.9 % . F [facility] Neutrophils Auto (Bld) [#/Vo l]Ordered By: Juan Alberto Hamilton on 12-27-2021 Neutrophils (Bld) [#/Vol] 6.7 10*3/uL 1.8-7.7 [facility] Neutrophils/100 WBC Auto (Bl d)Ordered By: Juan Alberto Hamilton on 12-27-2021 Neutrophils/100 WBC (Bld) 77.7 % . [facility] Nitrite Test strip Ql (U)Ord ered By: Juan Alberto Hamilton on 12-27-2021 Nitrite Ql (U) Negative Negative [facility] No Panel InformationOrdered By: Juan Alberto Hamilton on 12-27-2021 Estimated GFR () > 60 mL/Min [facility] Comment on above: GFR estimated refere nce range: According to KDOQI guidelines, <60 ml/min/1.73m2 is sufficient to diagnose a patient with chronic kidney disease. Pharmacy Creatinine Clearance (Chem 138.24 [facility] SARS Antigen (LFIA) [facility] Phencyclidine Screen Ql (U)O rdered By: Juan Alberto Hamilton on 12-27-2021 Phencyclidine Ql (U) Negative Negative [facility] Phenytoin (Dilantin)on 12-27 Phenytoin [Mass/Vol] 2.5 ug/mL Low 10.0-20.0 [facility] Comment on above: Order Comment: Comme nt USE FROM ER PLEASE Result Comment: Last dose: - PERFORMED BY: [place] [address] PATHOLOGIST FOOD AND NUTRITION SERVICES SUPERVISOR BELGICA ANAYA M.D. Performed By: #### U A, URDS #### [address] Platelet mean volume Auto (B ld) [Entitic vol]Ordered By: Juan Alberto Hamilton on 12-27-2021 Platelet mean volume (Bld) [Entitic vol] 8.1 fL 6.6-10.1 [facility] Platelets Auto (Bld) [#/Vol] Ordered By: Juan Alberto Hamilton on 12-27-2021 Platelets (Bld) [#/Vol] 218 10*3/uL 150-450 [facility] Protein Auto test strip (U) [Mass/Vol]Ordered By: Juan Alberto Hamilton on 12-27-2021 Protein (U) [Mass/Vol] Negative Negative [facility] Protein [Mass/volume] in Ser um or PlasmaOrdered By: Juan Alberto Hamilton on 12-27-2021 Protein [Mass/Vol] 6.9 g/dL 6.1-7.9 [facility] RBC Auto (Bld) [#/Vol]Ordere d By: Juan Alberto Hamilton on 12-27-2021 RBC (Bld) [#/Vol] 4.96 10*6/uL 3.90-5.60 [facility] Serum or plasma alanine boyer otransferase measurement without P-5'-P (enzymatic activiOrdered By: Juan Alberto Hamilton on 12-27-2021 ALT No additional P-5'-P [Catalytic activity/Vol] 13 U/L 1060 [facility] Serum or plasma albumin/glob ulin mass ratioOrdered By: Juan Alberto Hamilton on 12-27-2021 Albumin/Globulin [Mass ratio] 1.6 {ratio} [facility] Serum or plasma alkaline denton sphatase measurement (enzymatic activity/volume)Ordered By: Juan Alberto Hamilton on 12-27-2021 ALP [Catalytic activity/Vol] 75 U/L 32-92 [facility] Serum or plasma anion gap de terminationOrdered By: Juan Alberto Hamilton on 12-27-2021 Anion gap [Moles/Vol] 16.1 mmol/L 6.0-15.0 [facility] Serum or plasma aspartate am inotransferase measurement (enzymatic activity/volume)Ordered By: Juan Alberto Hamilton on 12-27-2021 AST [Catalytic activity/Vol] 16 U/L 10-42 [facility] Serum or plasma calcium gregory urement (mass/volume)Ordered By: Juan Alberto Hamilton on 12-27-2021 Calcium [Mass/Vol] 9.0 mg/dL 8.2-10.2 [facility] Serum or plasma chloride naomy surement (moles/volume)Ordered By: Juan Alberto Hamilton on 12-27-2021 Chloride [Moles/Vol] 98 mmol/L 95-114 [facility] Serum or plasma ethanol gregory urement (mass/volume)Ordered By: Juan Alberto Hamilton on 12-27-2021 Ethanol [Mass/Vol] mg/dL [facility] Ethanol [Mass/Vol] TNP [facility] Comment on above: Test not performed Serum or plasma glucose gregory urement (mass/volume)Ordered By: Juan Alberto Hamilton on 12-27-2021 Glucose [Mass/Vol] 194 mg/dL 70-100 [facility] Comment on above: ADA recommended refe rence rangeRandom Glucose Reference Range is dependent on time and content of last meal. Glucose of more than 200 mg/dL in a nonstressed, ambulatory subject supports the diagnosis of Diabetes Mellitus. Serum or plasma potassium me asurement (moles/volume)Ordered By: Juan Alberto Hamilton on 12-27-2021 Potassium [Moles/Vol] 3.4 mmol/L 3.5-5.1 [facility] Serum or plasma sodium measu rement (moles/volume)Ordered By: Juan Alberto Hamilton on 12-27-2021 Sodium [Moles/Vol] 139 mmol/L 136-146 [facility] Serum or plasma total biliru bin measurement (mass/volume)Ordered By: Juan Alberto Hamilton on 12-27-2021 Bilirubin [Mass/Vol] 0.5 mg/dL 0.3-1.2 [facility] Serum or plasma total carbon dioxide measurement (moles/volume)Ordered By: Juan Alberto Hamilton on 12-27-2021 CO2 [Moles/Vol] 28.3 mmol/L 22.0-30.0 [facility] Serum or plasma urea nitroge n measurement (mass/volume)Ordered By: Juan Alberto Hamilton on 12-27-2021 Urea nitrogen [Mass/Vol] 11 mg/dL 9- [facility] Pavel Ag Negativeon 12-28-19 Pavel Ag Negative Negative Normal Negative [facility] Comment on above: Result Comment: This is a duplicate Pavel SARS Antigen (SAMUEL) result to be used for statistical tracking purpose only. PERFORMED BY: [place] [address] [place] [address] PATHOLOGIST FOOD AND NUTRITION SERVICES SUPERVISOR BELGICA ANAYA M.D. Performed By: #### C OVID-19 PAVEL, SOFIANEG #### [facility] [address] Specific gravity Auto test s trip (U) [Rel density]Ordered By: Juan Alberto Hamilton on 12-27-2021 Specific gravity (U) [Rel density] 1.020 1.001-1.030 [facility] Thyroid Stim Hormone w/Rflxo n 12-27-2021 Thyroid Stim Hormone w/Rflx 1.13 u[iU]/mL Normal 0.45-5.33 [facility] Comment on above: Order Comment: FASTI NG Y Comment USE FROM ER PLEASE Performed By: #### L IPID, TSH3 wRFLX, [id number] #### [facility] [address] [place] [address] Urinalysison 12-27-2021 Appearance (U) Clear Normal Clear [facility] Comment on above: Order Comment: Name Collection Type:: Clean-Voided Midstream Performed By: #### U A, URDS #### [facility] [address] [place] [address] [place] Bilirubin,Urine Negative Normal Negative [facility] Comment on above: Order Comment: Name Collection Type:: Clean-Voided Midstream Performed By: #### U A, URDS #### [facility] [address] [place] [address] [place] Color (U) Yellow Normal Yellow [facility] Comment on above: Order Comment: Name Collection Type:: Clean-Voided Midstream Performed By: #### U A, URDS #### [facility] [address] [place] [address] [place] Glucose Ql (U) Normal Normal Normal [facility] Comment on above: Order Comment: Name Collection Type:: Clean-Voided Midstream Performed By: #### U A, URDS #### [facility] [address] [place] [address] [place] Ketones Ql (U) 1+ High Negative [facility] Comment on above: Order Comment: Name Collection Type:: Clean-Voided Midstream Performed By: #### U A, URDS #### [facility] [address] Leukocyte esterase Test strip Ql (U) Negative Normal Negative [facility] Comment on above: Order Comment: Name Collection Type:: Clean-Voided Midstream Performed By: #### U A, URDS #### [facility] [address] [place] [address] [place] Nitrite,Urine Negative Normal Negative [facility] Comment on above: Order Comment: Name Collection Type:: Clean-Voided Midstream Performed By: #### U A, URDS #### [address] Occult Blood,Urine Negative Normal Negative [facility] Comment on above: Order Comment: Name Collection Type:: Clean-Voided Midstream Result Comment: PERF ORMED BY: [place] [address] PATHOLOGIST [employer] NUTRITION SERVICES SUPERVISOR BELGICA ANAYA M.D. Performed By: #### U A, URDS #### [facility] [address] [place] [address] pH (U) 6.0 [pH] Normal 5.0-9.0 [facility] Comment on above: Order Comment: Name Collection Type:: Clean-Voided Midstream Performed By: #### U A, URDS #### [facility] [address] [place] [address] Protein,Urine Negative Normal Negative [facility] Comment on above: Order Comment: Name Collection Type:: Clean-Voided Midstream Performed By: #### U A, URDS #### [facility] [address] [place] [address] [place] Specificy [place],Urine 1.020 Normal 1.001-1.030 [facility] Comment on above: Order Comment: Name Collection Type:: Clean-Voided Midstream Performed By: #### U A, URDS #### [place] [address] [place] Urobilinogen,Urine Normal Normal Normal [facility] Comment on above: Order Comment: Name Collection Type:: Clean-Voided Midstream Performed By: #### U A, URDS #### [facility] [address] Urine clarity by refractomet ry automatedOrdered By: Juan Alberto Hamilton on 12-27-2021 Clarity Refractometry automated (U) Clear Clear [facility] Urine cocaine detectionOrder ed By: Juan Alberto Hamilton on 12-27-2021 Cocaine Ql (U) Negative Negative [facility] Urine glucose measurement by automated test strip (mass/volume)Ordered By: Juan Alberto Hamilton on 12-27-2021 Glucose Auto test strip (U) [Mass/Vol] Normal mg/dL Normal [facility] Urine hemoglobin detection b y automated test stripOrdered By: Juan Alberto Hamilton on 12-27-2021 Hemoglobin Auto test strip Ql (U) Negative Negative [facility] Urine leukocyte esterase det ection by automated test stripOrdered By: Juan Alberto Hamilton on 12-27-2021 Leukocyte esterase Auto test strip Ql (U) Negative Negative [facility] Urobilinogen Auto test strip (U) [Mass/Vol]Ordered By: Juan Alberto Hamilton on 12-27-2021 Urobilinogen (U) [Mass/Vol] Normal mg/dL Normal [facility] Vitamin D 25 Hydroxy Totalon 12-27-2021 Vitamin D 25 Hydroxy Total 17.4 ng/mL Low 30-100 [facility] Comment on above: Order Comment: MIGUEL ANGEL Lovell Comment USE FROM ER PLEASE Result Comment: TASHIA MIN D STATUS 25(OH)VITAMIN D RANGE (ng/mL) Deficient <20 Insufficient 20 to <30 Sufficient 30 to 100 Reference: Keon MF,Gonsalo NC, Marycruz ALVAREZ, et al. Evaluation,treatment, and prevention of vitamin D deficiency; an Endocrine Society clinical practice guideline. JCEM. 2010; 96(7):1911-30. PERFORMED BY: [place] [address] PATHOLOGIST FOOD AND NUTRITION SERVICES SUPERVISOR BELGICA ANAYA M.D. Performed By: #### U A, URDS #### [facility] [address] pH Auto test strip (U)Ordere d By: Juan Alberto Hamilton on 12-27-2021 pH (U) 6.0 [pH] 5.0-9.0 [facility] Vital Signs Date Time Vital Sign Value Performing Clinician Faci lity 12-27-2021 19:19-0400 Body temperature 98.3 [degF] [facility] 12-27-2021 19:19-0400 Diastolic blood pressure 90 mm[Hg] [facility] 12-27-2021 19:19-0400 Heart rate 76 /min [facility] 12-27-2021 19:19-0400 Respiratory rate 18 /min [facility] 12-27-2021 19:19-0400 SaO2% (BldA) [Mass fraction] 98 % [facility] 12-27-2021 19:19-0400 Systolic blood pressure 146 mm[Hg] [facility] 12-27-2021 17:21-0400 Body height 180.34 cm [facility] 12-27-2021 17:21-0400 Body weight 95.25 kg [facility] Encounters Encounter Date Encounter Type Care Provider Facility Start: 01-18-2025 End: 01-18-2025 ambulatory Jong L See Facility:[facility] Start: 01-06-2025 End: 01-06-2025 ambulatory Mk Cooper Facility:[facility] Start: 12-17-2024 End: 12-17-2024 ambulatory Jong L Seese Facility:[facility] Start: 09-11-2024 End: 09-11-2024 ambulatory Efewongbe Olerolae Facility:[facility] Start: 09-11-2024 End: 09-11-2024 ambulatory Efewongbe Olee Facility:[facility] Start: 07-16-2024 End: 07-16-2024 ambulatory Efewongbe Oleghe Facility:[facility] Start: 07-10-2024 End: 07-10-2024 ambulatory Mk Cooper Facility:[facility] Start: 04-28-2024 End: 04-28-2024 ambulatory Jong L Seese Facility:[facility] Start: 02-05-2024 End: 02-05-2024 ambulatory Efewongbe Oleghe Facility:[facility] Start: 01-02-2022 End: 01-30-2022 ambulatory Facility:[id number] Start: 01-02-2022 End: 01-29-2022 Subsequent hospital visit by physician Lab Referred Work Phone: [facility] Comment on above: F19.229 Start: 12-27-2021 End: 01-01-2022 Evaluation and management of inpatient Loi Quiñones Facility:[facility] Start: 12-27-2021 Evaluation and management of inpatient [facility] Procedures Date Procedure Procedure Detail Performing Clinician SARS Antigen (LFIA) Plan of Treatment Date Care Activity Detail Author Start: 11-30-2021 Influenza vaccination INFLUENZA (#1) [facility] Start: 04-01-2021 DEPRESSION ASSESSMENT DEPRESSION ASS ESSMENT [facility] Start: 2014 LIPID SCREEN LIPID SCREEN [facility] Start: 1998 Urine microalbumin profile DTAP,TDAP,TD (1 - Tdap) [facility] Start: 1997 HEPATITIS C SCREENING HEPATITIS C SC REENING [facility] Start: 1997 HIV SCREENING HIV SCREENING [facility] Start: 1985 PNEUMOCOCCAL (1 - PCV) PNEUMOCOCCAL (1 - PCV) [facility] Start: 1979 COVID-19 VACCINE (#1) COVID-19 VACCI NE (#1) [facility] Start: 1979 HEPATITIS B (1 of 3 - 3-dose series) HEPATITIS B (1 of 3 - 3-dose series) [facility] Payers Date Payer Category Payer Unknown [id number] 2021 Self-pay 2021 Unknown [id number] Unknown Other1 (STD) [id number] Unknown [facility] [employer] PA YOR [facility] [employer] PAYOR [id number] Effective for all dates [address] [place] [address] Other [id number] Unknown [id number] Unknown [id number] Unknown [id number] Unknown [id number] Unknown [id number] Unknown [id number] Unknown [id number] Unknown [id number] Unknown [id number] Unknown [id number] Social History Date Type Detail Facility Start: [facility]27[facility] Start: 1980 Sex Assigned At Male F [facility] Start: 12-09-2009 [facility] History of tobacco use Cigarette Smoker C [facility] Start: 12-09-2009 Tobacco use and exposure User of smokeless tobacco [facility] of tobacco use [facility] Start: 12-09-2009 Alcohol intake Current drinke r of alcohol (finding) [facility] Start: 1980 Sex Assigned At Not on file C [facility] Evaluation note Note Date & Type Note Facility Evaluation note Diagnosis Onset Date Suicidal ideation acute [facility] Work Phone: Chief Complaint and Reason for Visit Chief Complaint SI Reason for Visit Suicidal ideation Advance Directives No Advanced Directives Records Found Advance Directive Response Recorded Date/ Time Advance Directives No November 5:50pm Summary Purpose Family History No Family History Records FoundNo Family History Records FoundNo Family History Records Found Additional Source Comments Care Teams (unrecognized sec tion and content) Team Status: Active Member Role Status Dates NON STAFF Primary Care Provider Active Juan Alberto Hamilton MD Emergency Provider Active Loi Quiñones MD Admit Provider, Attending Vinicio cat Active Team Status: Active Member Role Status Dates [...] or prosecute any alcohol or drug abuse patient.[facility] (unrecognized sect ion and content) No Status Records FoundNo Status Records FoundNo Status Records Found INFORMATION SOURCE (unrecogn ized section and content) DATE CREATED AUTHOR 01/30/2022 [facility] DATE CREATED AUTHOR AUTHOR'S ORGANIZ ATION 05/05/2022 [facility] DATE CREATED AUTHOR AUTHOR'S ORGANIZ ATION 01/19/2025 [facility] FOR RECORDS PERTAINING TO PATIENTS WHO ARE [...] BE BASED ON THE PRIMARY CLINICAL RECORDS. [employer] provides no warranty or guarantee of the accuracy or completeness of information in this document.
[2025-03-31 09:01] LABS: Hematocrit 42.6 % (40-54); Hemoglobin 14.8 g/dL (13.0-16.5); Immature Granulocytes Count 0.020 X10^3/uL (0.0-0.0); Mean Corp Hgb Conc 34.7 g/dL (32-36); Mean Corpuscular Volume 84.2 fL (80-94); Mean Platelet Vol. 9.4 fl (6.2-12.0); NRBC Flagged by Analyzer 0 % (0-5); Platelet Count 248 K/mm3 (150-450); RBC Distribution Width CV 12.8 % (11.6-14.6); RBC Distribution Width SD 38.8 fl (35.1-43.9); Red Blood Count 5.06 M/mm3 (4.6-6.2); White Blood Count 8.6 K/mm3 (4.4-11.0)
[2025-03-31 09:34] LABS: AST(SGOT) 13 U/L (<=37); Alanine Aminotransfer ALT/SGPT 22 U/L (<=46); Albumin, Serum 4.7 g/dL (3.5-5.0); Alkaline Phosphatase 71 U/L (40-129); Anion Gap 12 (7-18); BUN 16 mg/dL (4-19); BUN/Creat Ratio 20.4 RATIO (10-20); Calcium,Total 9.6 mg/dL (7.6-11.0); Carbon Dioxide 25.1 mmol/L (20.0-29.0); Chloride 99 mmol/L (96-106); Cholesterol 229 mg/dL (<=200); Globulin 2.6 g/dL (2.2-4.2); Glucose 179 mg/dL (70-99); Low Density Lipoprotein Calc. 129 mg/dL; Potassium 4.2 mmol/L (3.5-5.1); Triglycerides 308 mg/dL; Very Low Density Lipoprotein 62 mg/dL (5-40); cholesterol:hdl ratio screen 5.08
[2025-03-31 09:40] LABS: Creatinine, Urine (random) 33.40 mg/dL (39.00-259.00); Microalbumin,Random Urine 19.9 mg/L (<20 mg/L)
== END | disposition home or self-care (01) ==
LOC: LAB 08:14
PROVIDERS: PCP Internal Medicine; Referring Provider Physician Assistant; Visit Provider Physician Assistant
DX: E11.69 Type 2 diabetes mellitus with other specified complication (principal)
CPT/HCPCS: 36415; 80053; 80061; 82043; 82570; 83036; 85025